=== PATIENT | male | born 1960 | race Caucasian/White ===

== ENCOUNTER 2018-05-02 13:53 | Inpatient (IN) ==
[2018-05-02] MEDS ORDERED: ASPIRIN PO ONE (14:01)
[2018-05-02] MEDS ORDERED: LASIX IV ONE (14:32)
--- NOTE | 2018-05-02 14:35 | Diag Imaging Result Doc PS360 ---
EXAM: CHEST-PORTABLE 05/02/2018 HISTORY: SOB/EDEMA TECHNIQUE: AP portable at 1427 COMMENT: There is cardiomegaly. There is ill-defined opacity in the right base some of which is probably produced by the cardiomegaly. There appears to be increased pulmonary vascularity and interstitial edema which was also present on 09/12/2017. IMPRESSION: Cardiomegaly and pulmonary edema. Electronically signed by Robin Barrientos 05/02/2018 2:32 PM
--- NOTE | 2018-05-02 14:45 | EKG Report ---
Test Performed on : 05/02/2018 2:03:45 PM Test Reason : SOB/EDEMA Blood Pressure : / mmHG Vent. Rate : 085 BPM Atrial Rate : 085 BPM P-R Int : 138 ms QRS Dur : 108 ms QT Int : 384 ms P-R-T Axes : 047 097 114 degrees QTc Int : 456 ms Normal sinus rhythm. Rightward axis Borderline ECG When compared with ECG of 12-SEP-2017 10:08, ST less depressed in Anterior leads T wave inversion no longer evident in Anterior leads Unconfirmed Result
[2018-05-02 15:18] LABS: BASO# 0.02 X1000 (0.0-0.2); BASO% 0.3 % (0.0-0.8); EOS# 0.27 X1000 (0.0-0.7); EOS% 3.8 % (0.0-10.0); HEMATOCRIT 29.7 % (42.0-52.0); HEMOGLOBIN 8.1 g/dL (14.0-18.0); IMM GRAN# 0.02 X1000 (0.0-0.04); IMM GRAN% 0.3 % (0.0-0.5); LYMPH# 1.03 X1000 (1.2-3.4); LYMPH% 14.6 % (20.5-51.1); MCHC 27.3 g/dL (33-37); MCV 88.1 FL (81-99); MONO# 0.66 X1000 (0.11-0.59); MONO% 9.3 % (1.7-9.3); MPV 10.9 FL (7.4-10.4); NEUT# 5.07 X1000 (1.4-6.5); NEUT% 71.7 % (42.2-75.2); PLT 276 X1000 (130-400); RBC 3.37 XMIL (4.7-6.1); RDW 17.6 % (11.5-14.5); WBC 7.07 X1000 (4.8-10.8)
[2018-05-02 15:25] LABS: INR 1.26; PROTIME 16.8 Seconds (11.0-16.0); PTT 27.4 Seconds (22.3-41.8)
[2018-05-02 15:33] LABS: URINE SOURCE CATH
[2018-05-02 15:48] LABS: BILIRUBIN URINE NEGATIVE (NEGATIVE); BLOOD URINE NEGATIVE (NEGATIVE); COLOR YELLOW; GLUCOSE URINE NEGATIVE (NEGATIVE); KETONE URINE NEGATIVE (NEGATIVE); LEUKOCYTES URINE SMALL (NEGATIVE); NITRITE URINE POSITIVE (NEGATIVE); PROTEIN URINE TRACE mg/dL (NEGATIVE); SP GRAVITY URINE 1.009; TURBIDITY URINE CLEAR (CLEAR); UROBILINOGEN URINE NORMAL (NORMAL)
[2018-05-02 15:50] LABS: UR EPITHELIAL CELLS <10 /HPF (<10); URINE BACTERIA 4+ /HPF; URINE RBC <10 /HPF (<10)
[2018-05-02 16:03] LABS: ALB/GLOB RATIO 1.3; ALBUMIN 3.3 g/dL (3.5-5.0); CALCIUM 8.8 mg/dL (8.8-10.2); CREATININE 2.4 mg/dL (0.7-1.2); POTASSIUM 6.6 mmol/L (3.5-5.1); TOTAL BILIRUBIN 0.18 mg/dL (0.20-1.00); TOTAL PROTEIN 5.9 g/dL (6.3-8.3)
[2018-05-02] MEDS ORDERED: ALBUTEROL 0.5% INH CONC FOR HYPERKALEMIA INH ONE (16:30)
[2018-05-02] MEDS ORDERED: ROCEPHIN 1 GM in NS 50 ML IV ONE (16:32)
[2018-05-02] MEDS ORDERED: CALCIUM GLUCONATE IV PUSH ONE (16:42)
[2018-05-02] MEDS ORDERED: D50W SYRINGE IV ONE (16:43)
[2018-05-02] MEDS ORDERED: SODIUM BICARBONATE 8.4% IV PUSH ONE (16:43)
[2018-05-02] MEDS ORDERED: HUMULIN R IV ONE (16:43)
[2018-05-02] MEDS ORDERED: KAYEXALATE PO ONE ×2 (16:44→21:16)
--- NOTE | 2018-05-02 17:11 | PROVIDER DOCUMENTATION ---
This chart was entered by Nury Medeiros Scribe, acting as scribe for Pablo Snowden MD. HPI-Respiratory General - General Chief Complaint: Edema Stated Complaint: DIARRHEA Time Seen by Provider: 05/02/18 14:26 Source: patient, family (daughter) Allergies/Adverse Reactions: Patient Allergies Allergy/AdvReac Type Severity Reaction Status Date / Time No Known Allergies Allergy Verified 09/12/17 09:59 Home Medications: Home Medication List Medication Instructions Recorded Confirmed Last Taken Type Amitriptyline HCl 100 mg PO QHS PRN #30 tab 08/29/17 09/12/17 Unknown Rx Aspirin [Aspirin EC] 81 mg PO DAILY #30 tablet.dr 08/29/17 09/12/17 Unknown Rx Gabapentin 600 mg PO TID #90 tab 08/29/17 09/12/17 Unknown Rx Pantoprazole [Protonix] 40 mg PO DAILY@0700 #30 tab 08/29/17 09/12/17 Unknown Rx Carvedilol [Coreg] 12.5 mg PO BID 09/12/17 09/12/17 Unknown History Furosemide [Lasix] 40 mg PO BID 09/12/17 09/12/17 Unknown History Hydrocodone/Acetaminophen [[place] 1 tab PO Q6H PRN PRN #20 tab 09/14/17 Unknown Rx 5-325 Tablet] - History of Present Illness-Resp Nature of Presenting Problem: Patient is a 57 year old male who presents to the ED with shortness of breath and weight gain. Patient's daughter states patient has gain 46 lbs in the last month. Patient's daughter states patient took a double dose of Lasix yesterday with no relief. Patient denies chest pain, fever, chills, nausea and vomiting. Patient states mild cough. Quality of Pain: reports: tightness Severity in ED: reports: mild Onset/Duration: reports: gradual Timing: reports: still present, getting worse Cough Quality/Degree: reports: moderate Episode Frequency: frequent episodes Current Respiratory Medication Therapy: Initiated see nurses note Associated Symptoms: reports: cough, shortness of breath, other (weight gain) Similar Symptoms Previously?: Yes Recently seen or treated by another doctor?: Yes Review of Systems - Adult - REVIEW OF SYSTEMS - ADULT Constitutional: reports: weight gain. denies: chills, fever Eyes: reports: no symptoms reported Ears, Nose, Mouth & Throat: reports: no symptoms reported Cardiovascular: reports: no symptoms reported. denies: chest pain, heart murmur , irregular heart rate Respiratory: reports: cough, shortness of breath. denies: wheezing Gastrointestinal: reports: no symptoms reported. denies: abdominal pain, diarrhea, nausea, vomiting Genitourinary: reports: no symptoms reported Musculoskeletal: reports: no symptoms reported Integumentary: reports: no symptoms reported Neurological: reports: no symptoms reported Psychiatric: reports: no symptoms reported Endocrine: reports: no symptoms reported Hematologic/Lymphatic: reports: no symptoms reported Allergic/Immunologic: reports: no symptoms reported All Other Systems: Reviewed and Negative Past History - Adult - PAST MEDICAL HISTORY-ADULT Review of Records: reports: Nursing Assessment Review, Medications Reviewed, Social history reviewed & non-contributory. Major Childhood Illnesses: reports: denies history Cardiovascular: reports: CHF, HTN, HI Respiratory: reports: COPD, sleep apnea Gastrointestinal: reports: denies history Obstetrical/Gynecological: reports: denies history Genitourinary: reports: dialysis (Tues,Thurs, Sat), ESRD, kidney disease Musculoskeletal: reports: other (Restless leg syndrome) Neurological: reports: denies history Endocrine/Immune: reports: Diabetes Other Conditions: reports: denies history - PRIOR SURGERIES/PROCEDURES Surgical/Procedure History: reports: CABG, cholecystectomy, orthopedic ( extremity) (right knee, right thumb sx), other (triple bypass) - IMMUNIZATION STATUS Childhood Immunizations: UTD Flu Vaccine: See Nurse Assessment - FAMILY HISTORY Family History: reviewed, not pertinent - SOCIAL HISTORY Smoking: cigarettes (former) Substance Use: denies Living Situation: family Physical Exam-General - PHYSICAL EXAM-ADULT Initial Vital Signs Reviewed: Yes - CONSTITUTIONAL General Appearance: alert, no apparent distress, obese - RESPIRATORY Respiratory: chest non-tender, rales (bilateral) - CARDIOVASCULAR Cardiovascular: regular rate, rhythm, gallop/S3 - GASTROINTESTINAL (ABDOMEN) Abdominal Exam: normal bowel sounds, non tender, soft, other (edema and cellulitis to panniculus. colostomy bag present to left lower abdomen.) - MUSCULOSKELETAL Extremity: non-tender, other (4 + pitting edema to bilateral lower extremities. stasis dermatitis to bilateral anterior lower extremities. weeping to right lower extremity.) - SKIN Integumentary: other (stasis dermatitis to bilateral anterior lower extremities. weeping to right lower extremity.) - NEUROLOGIC Neurologic: grossly normal - PSYCHIATRIC Psych/Mental Status: normal mood/affect, oriented x 3 Progress - PLAN OF CARE/RESULTS Progress/Plan/Lab Results: Vital Signs - 8 hr 05/02/18 14:00 05/02/18 14:20 05/02/18 14:30 Temperature 97.6 F Pulse Rate 87 84 84 Respiratory Rate 20 25 H 21 Blood Pressure 120/62 125/64 O2 Sat by Pulse Oximetry 96 88 L 89 L 05/02/18 14:32 05/02/18 14:40 05/02/18 14:50 Temperature Pulse Rate 84 83 83 Respiratory Rate 24 24 31 H Blood Pressure 117/61 O2 Sat by Pulse Oximetry 92 L 94 L 96 05/02/18 15:00 05/02/18 15:02 05/02/18 16:20 Temperature Pulse Rate 83 80 Respiratory Rate 20 19 Blood Pressure 100/56 O2 Sat by Pulse Oximetry 97 96 93 L Laboratory Results - last 24 hr 05/02/18 05/02/18 05/02/18 14:43 14:43 14:43 WBC 7.07 RBC 3.37 L Hgb 8.1 L Hct 29.7 L MCV 88.1 MCH 24.0 L MCHC 27.3 L RDW Std Deviation 17.6 H Plt Count 276 MPV 10.9 H Immature Gran % (Auto) 0.3 Neut % (Auto) 71.7 Lymph % (Auto) 14.6 L [place] % (Auto) 9.3 Eos % (Auto) 3.8 Baso % (Auto) 0.3 Immature Gran # (Auto) 0.02 Neut # (Auto) 5.07 Lymph # (Auto) 1.03 L [place] # (Auto) 0.66 H Eos # (Auto) 0.27 Baso # (Auto) 0.02 PT INR PTT (Actin FS) Sodium 139 Potassium 6.6 H* Chloride 110 H Carbon Dioxide 19 L Anion Gap 10 BUN 88 H Creatinine 2.4 H Estimated GFR/1.73 m2 28 BUN/Creatinine Ratio 37 Glucose 163 H Calculated Osmolality 308 Calcium 8.8 Total Bilirubin 0.18 L AST 11 ALT 10 Alkaline Phosphatase 93 Creatine Kinase 100 Troponin T Zhk-W-Qliythmbtmh Pept 6162 H Total Protein 5.9 L Albumin 3.3 L Globulin 2.6 Albumin/Globulin Ratio 1.3 Urine Source Urine Color Urine Turbidity Urine pH Ur Specific Cook Urine Protein Ur Glucose (Stick) Ur Ketones (Stick) Urine Blood Urine Nitrite Urine Bilirubin Urobilinogen Dipstick Urine Leukocytes Urine WBC (Auto) Urine RBC (Auto) U Epithel Cells (Auto) Urine Bacteria (Auto) 05/02/18 05/02/18 05/02/18 14:43 14:43 15:23 WBC RBC Hgb Hct MCV MCH MCHC RDW Std Deviation Plt Count MPV Immature Gran % (Auto) Neut % (Auto) Lymph % (Auto) [place] % (Auto) Eos % (Auto) Baso % (Auto) Immature Gran # (Auto) Neut # (Auto) Lymph # (Auto) [place] # (Auto) Eos # (Auto) Baso # (Auto) PT 16.8 H INR 1.26 PTT (Actin FS) 27.4 Sodium Potassium Chloride Carbon Dioxide Anion Gap BUN Creatinine Estimated GFR/1.73 m2 BUN/Creatinine Ratio Glucose Calculated Osmolality Calcium Total Bilirubin AST ALT Alkaline Phosphatase Creatine Kinase Troponin T 0.104 H Bda-Y-Bbumjcyklsw Pept Total Protein Albumin Globulin Albumin/Globulin Ratio Urine Source CATH Urine Color YELLOW Urine Turbidity CLEAR Urine pH 5.0 Ur Specific Cook 1.009 Urine Protein TRACE A Ur Glucose (Stick) NEGATIVE Ur Ketones (Stick) NEGATIVE Urine Blood NEGATIVE Urine Nitrite POSITIVE A Urine Bilirubin NEGATIVE Urobilinogen Dipstick NORMAL Urine Leukocytes SMALL A Urine WBC (Auto) 10-20 A Urine RBC (Auto) <10 U Epithel Cells (Auto) <10 Urine Bacteria (Auto) 4+ 05/02/18 16:14 WBC RBC Hgb Hct MCV MCH MCHC RDW Std Deviation Plt Count MPV Immature Gran % (Auto) Neut % (Auto) Lymph % (Auto) [place] % (Auto) Eos % (Auto) Baso % (Auto) Immature Gran # (Auto) Neut # (Auto) Lymph # (Auto) [place] # (Auto) Eos # (Auto) Baso # (Auto) PT INR PTT (Actin FS) Sodium Potassium 6.5 H* Chloride Carbon Dioxide Anion Gap BUN Creatinine Estimated GFR/1.73 m2 BUN/Creatinine Ratio Glucose Calculated Osmolality Calcium Total Bilirubin AST ALT Alkaline Phosphatase Creatine Kinase Troponin T Exc-J-Qckaurleirr Pept Total Protein Albumin Globulin Albumin/Globulin Ratio Urine Source Urine Color Urine Turbidity Urine pH Ur Specific Cook Urine Protein Ur Glucose (Stick) Ur Ketones (Stick) Urine Blood Urine Nitrite Urine Bilirubin Urobilinogen Dipstick Urine Leukocytes Urine WBC (Auto) Urine RBC (Auto) U Epithel Cells (Auto) Urine Bacteria (Auto) Orders Category Date Time Status Cardiac Monitoring DIRECTED Care 05/02/18 14:01 Active Atkins Cath Insertion ORDERED Care 05/02/18 15:04 Active Nursing- MD Consult Request ROUTINE Care 05/02/18 16:29 Active Oxygen Therapy- ED Nursing DIRECTED Care 05/02/18 14:01 Active Saline Loc NOW Care 05/02/18 14:01 Active Update & Confirm Home Medicati ROUTINE Care 05/02/18 16:28 Active MD [Physician/Provider Consults] Routine Cons 05/02/18 16:28 Ordered CHEST-PORTABLE [RAD] Stat Exams 05/02/18 14:02 Completed CBC WITH ELECTRONIC DIFF [HEME] Stat Lab 05/02/18 14:43 Completed CK PROFILE [SP CHEM] Stat Lab 05/02/18 14:43 Completed COMPREHENSIVE METABOLIC PANEL [CHEM] Stat Lab 05/02/18 14:43 Completed POTASSIUM [CHEM] Stat Lab 05/02/18 16:14 Completed PRO B-NATRIURETIC PEPTIDE Stat Lab 05/02/18 14:43 Completed PROTIME WITH INR [COAG] Stat Lab 05/02/18 14:43 Completed PTT [COAG] Stat Lab 05/02/18 14:43 Completed TROPONIN T Stat Lab 05/02/18 14:43 Completed URINALYSIS W/POSS RFLX CULT [URINALYSIS] Stat Lab 05/02/18 15:23 Completed URINE CULTURE [RM] Routine Lab 05/02/18 15:54 Received Albuterol 0.5% INH Conc [Albuterol 0.5% INH Conc For Med 05/02/18 16:30 Discontinued Hyperkalemia] 25 mg INH NOW ONE Aspirin Med 05/02/18 14:01 Discontinued 325 mg PO NOW ONE Calcium Gluconate Med 05/02/18 16:42 Discontinued 1 gm IV PUSH NOW ONE CefTRIAXONE [Rocephin] 1 gm Med 05/02/18 16:32 Discontinued 0.9% Sodium Chloride Inj [Ns] 50 ml IV NOW Dextrose 50% Syringe [D50w Syringe] Med 05/02/18 16:43 Discontinued 50 ml IV NOW ONE Furosemide [Lasix] Med 05/02/18 14:32 Discontinued 60 mg IV NOW ONE Insulin Human Regular [Humulin R] Med 05/02/18 16:43 Discontinued 10 unit IV NOW ONE Sodium Bicarbonate 8.4% Med 05/02/18 16:43 Discontinued 50 meq IV PUSH NOW ONE Sodium Polystyrene [Kayexalate] Med 05/02/18 16:44 Discontinued 15 gm PO NOW ONE Aerosol Treatments Routine Oth 05/02/18 16:31 Completed Aerosol Treatments Stat Oth 05/02/18 16:31 Completed CP/SOB/Palp >45 yrs of Age Stat Oth 05/02/18 14:01 Ordered EKG [EKG] Stat Ther 05/02/18 14:01 Draft Result Diagrams: 05/02/18 14:43 05/02/18 16:14 - REASSESSMENT Reassessment #1 Time Reassessed: 17:06 Status: unchanged (lasix 60mg given, rocephin given, 2nd K+ = 6.5. Bump in troponin w/o ST elevation.) - EKG 1 Time of EKG reading by physician:: 14:03 EKG Read and Signed by:: Pablo Snowden EKG Interpretation (*Must complete 3 of following elements*): Abnormal Rate: 85 Rhythm: normal sinus rhythm [place]: right QRS: normal [place] Interval: normal Comments: borderline ECG - XRAY 1 XRAY Study: Chest Impression: See EMR Report ( EXAM: CHEST-PORTABLE 05/02/2018 HISTORY: SOB/ EDEMA TECHNIQUE: AP portable at 1427 COMMENT: There is cardiomegaly. There is ill-defined opacity in the right base some of which is probably produced by the cardiomegaly. There appears to be increased pulmonary vascularity and interstitial edema which was also present on 09/12/2017. IMPRESSION: Cardiomegaly and pulmonary edema. Electronically signed by Robin Barrientos 2:32 PM 05/02/18 1432 Interpreting Physician: Robin Barrientos MD Dictated Date/Time: 05/02/18 1431 cc: Pablo Snowden MD; Fariba Heard MD) - CONSULTS/PCP/HOSPITALIST Notification #1 *Consult/PCP/Hospitalist*: GIRMA Perales for Hospitalist Time Discussed: 16:29 (Dr. Boyd accepted admit) Reason/Comments: Dr. Snowden consulted with MERRITT Perales about patient. Consult Disposition: Admit Departure - Departure Date of Disposition Decision: 05/02/18 Time of Disposition Decision: 16:29 DIAGNOSIS: Pulmonary edema, Chronic kidney disease, CHF (congestive heart failure), UTI ( urinary tract infection), Hyperkalemia Disposition: ADMITTED INPATIENT 09 Certified Medical Emergency: Emergent Condition: Stable Referrals and Follow-Ups: Fariba Heard MD [Primary Care Provider] - - Critical Care Note This patient required my direct & personal management of CC.: No Attestation - Physician/ ADEOLA Attestation The physician spent face to face time with patient:: Yes Advanced Practice Provider documentation review:: Supervising physician onsite and consulted in the evaluation and care of this patient. The physician did have a face to face encounter with the patient. This chart was documented by the indicated scribe, (Nury Medeiros Scribe) and accurately reflects the services I performed and decisions made by me, Pablo Snowden MD, as attested by the provider's signature.
[2018-05-02] MEDS ORDERED: TYLENOL PO PRN (17:37)
[2018-05-02] MEDS ORDERED: ZOFRAN IV PRN (17:37)
[2018-05-02] MEDS: HEPARIN SUBQ SCH (17:37)
--- NOTE | 2018-05-02 20:17 | HISTORY AND PHYSICAL ---
PRIMARY CARE PROVIDER: Dr. Heard. CARPENTER STREETCAR: Dr. Magnus Villaseñor. CHIEF COMPLAINT: A 46 pounds weight gain in 1 to 3 months. HISTORY OF PRESENT ILLNESS: Mr. Oshea is a 56-year-old gentleman who is known to Dr. Villaseñor' service for outpatient for his chronic kidney disease stage 4 to 5. His family members are in the room. He has been in and out of [facility] and [facility] for this past year as well as in and out of rehab. He has a stage IV decubitus that he had surgery for at [facility] with a diverting colostomy. He is currently bed bound at home with [facility]. The patient wants to be a full code and receive all treatments and be discharged back home with hospice. Other past medical history: Diabetes mellitus type 2, end-stage COPD for which he is on hospice for, hyperlipidemia, coronary artery disease, morbid obesity, chronic pain, sleep apnea, anemia of chronic disease and chronic edema. The patient went to see Dr. Villaseñor today. He does have bilateral lower extremity pitting edema all the way up to his abdomen. He has weeping to his bilateral lower extremities. Workup in the ED revealed a potassium of 6.6, a BUN of 88 and a creatinine of 2.4. ProBNP of 61 and 62, and a troponin of 0.104, as well as a positive urinalysis. He was given IV Lasix. We will treat his hyperkalemia per protocol. He was given IV Rocephin. We will admit him and consult Dr. Villaseñor for assistance with medications and his chronic kidney disease. He denies any headache, fever, chills, productive cough. However, he does complain of a dry cough. At no dysuria. No chest pain. He does have shortness of breath; however, he states it is no more than his usual. PAST MEDICAL HISTORY: 1. Chronic kidney disease stage 4, 5. 2. Diabetes mellitus type 2. 3. Hypertension. 4. Hyperlipidemia. 5. Coronary artery disease. 6. Morbid obesity. 7. Chronic pain. 8. Sleep apnea. The patient is supposed to use CPAP machine at night. 9. Anemia of chronic disease. 10. Chronic edema. 11. COPD, end-stage per family for which he is on hospice. SURGICAL HISTORY: 1. CABG. 2. Cholecystectomy. 3. Knee surgery. 4. Hernia repair. 5. Vascular surgery in lower extremities. 6. Sacral decubitus ulcer performed at [facility]. 7. Diverting colostomy secondary to decubitus on sacrum. SOCIAL HISTORY: He lives with his . He is on hospice with [facility]. No tobacco, alcohol or illicit drug use. FAMILY HISTORY: Noted for kidney disease as well as heart disease. CURRENT ALLERGIES: No known drug allergies HOME MEDICATIONS: Have not been reconciled. Order has been placed, dated, confirmed. REVIEW OF SYSTEMS: A 14 point review of systems completely negative except for those mentioned in HPI. PHYSICAL EXAMINATION: VITAL SIGNS: Temperature is 97.6 degrees, heart rate 79, respirations 18, blood pressure 110/70, O2 is 95% on 3 L nasal cannula. GENERAL: Mr. Oshea is a 57-year-old, fidgety, male who is lying on his left side in the stretcher. He is demanding the door be left open, the curtain pulled back and to sit on the edge of the bed unassisted. HEENT: Atraumatic, normocephalic. [place]. NECK: Supple. CARDIOVASCULAR: S1, S2 appreciated. No murmurs, gallops or rubs noted. Could not appreciate pedal pulses secondary to bilateral lower extremity pitting edema with weeping to his bilateral lower extremities. His pitting edema extends up to his abdomen area. JVD could not be is assessed secondary to patient's morbid obesity. GENITOURINARY: Atkins draining clear urine. PULMONARY: Scattered rhonchi and rales throughout all lung mills. No wheezing. Bilaterally decreased in the bases. GASTROINTESTINAL: Morbidly obese. He does have body wall edema. No tenderness to palpation. Hypoactive bowel sounds 4 quadrants. NEUROLOGIC: Patient is alert and oriented x 4. Follows commands. Moves all extremities. No focal deficits noted. DIAGNOSTIC DATA: EKG normal sinus rhythm at 85 beats per minute. QTc of 456. Chest x-ray: Cardiomegaly with pulmonary edema. LABORATORY DATA: White count 7, hemoglobin and hematocrit 8 and 29, platelet count is 276,000. Chemistry: Sodium 139, potassium 6.6, recheck 6.5 after 60 of Lasix. BUN 88, creatinine 2.4, blood glucose is 163, total bilirubin 0.18. Troponin 0.104. ProBNP 61, 62. ASSESSMENT AND PLAN: 1. Fluid volume overload secondary to acute on chronic kidney disease/CHF/ Pulmonary hypertension. The patient has received IV Lasix. We will continue with IV Lasix q.12, consult Dr. Villaseñor. Strict I's and O's, daily weights. Routine labs. 2. Hyperkalemia, at 6.6 after IV Lasix. He went down to 6.5. Will continue with hypokalemic treatment, 1 amp of calcium gluconate, D50, 10 units of IV, regular insulin, 1 amp of sodium bicarbonate and Kayexalate. Will recheck in 1 hour after medications have been administered. 3. Per report, stage IV decubitus. The patient had debrided at [facility] with a diverting colostomy. We will consult Wound Care. 4. Probable UTI. We will continue with Rocephin, await urine culture. 5. Chronic anemia, stable. 6. History of congestive heart failure. Patient does have an elevated proBNP. We will continue with diuresis. Recheck an echocardiogram. 7. Coronary artery disease. No chest pain. 8. Chronic pain syndrome. We will continue with [place]. 9. Diabetes mellitus type 2. We will check a hemoglobin A1c. Continue with pattern blood sugars and sliding scale. 10. Hypertension. 11. Update and confirm home medications. 12. End-stage COPD. Patient is on hospice with [facility]. He requested to return home with hospice. 13. Code status. Full code. 14. Further recommendations to follow physician evaluation, laboratory data and diagnostic data. Dictated by GIRMA Nayak for Thomas Boyd MD Patient seen and examined by me. Patient presenting with weight gain. He has CKD and noted to have a k+ level of 6.6. He has a diverting colostomy secondary to decubitus in the sacrum. Vitals stable. Nephrology consulted I agree with the assessment and plan as outlined by the GIRMA. Dr. Boyd. cc: Thomas Boyd MD [facility]
[2018-05-02] MEDS: HUMALOG SUBQ SCH (21:00)
[2018-05-03] MEDS: LASIX IV SCH ×2 (04:00→17:56)
[2018-05-03] MEDS ORDERED: D50W SYRINGE IV ONE (04:09)
[2018-05-03] MEDS ORDERED: ALBUTEROL 0.5% INH CONC FOR HYPERKALEMIA INH ONE (04:09)
[2018-05-03] MEDS ORDERED: CALCIUM GLUCONATE 1 GM in NS 50 ML IV ONE (04:09)
[2018-05-03] MEDS ORDERED: HUMULIN R IV ONE (04:09)
[2018-05-03] MEDS: HUMALOG SUBQ SCH ×4 (06:01→21:33)
[2018-05-03] MEDS: PRILOSEC PO SCH (06:13)
[2018-05-03 07:05] LABS: BASO# 0.02 X1000 (0.0-0.2); BASO% 0.3 % (0.0-0.8); EOS# 0.24 X1000 (0.0-0.7); EOS% 3.4 % (0.0-10.0); HEMATOCRIT 28.6 % (42.0-52.0); HEMOGLOBIN 7.7 g/dL (14.0-18.0); IMM GRAN# 0.02 X1000 (0.0-0.04); IMM GRAN% 0.3 % (0.0-0.5); LYMPH% 18.6 % (20.5-51.1); MCH 23.5 PG (27-31); MCHC 26.9 g/dL (33-37); MCV 87.5 FL (81-99); MONO# 0.57 X1000 (0.11-0.59); MONO% 8.2 % (1.7-9.3); MPV 10.7 FL (7.4-10.4); NEUT# 4.84 X1000 (1.4-6.5); NEUT% 69.2 % (42.2-75.2); PLT 283 X1000 (130-400); RBC 3.27 XMIL (4.7-6.1); RDW 17.8 % (11.5-14.5); WBC 6.99 X1000 (4.8-10.8)
--- NOTE | 2018-05-03 07:48 | EKG Report ---
Test Performed on : 05/03/2018 07:40:24 AM Test Reason : fu hyperkalemia Blood Pressure : / mmHG Vent. Rate : 097 BPM Atrial Rate : 097 BPM P-R Int : 144 ms QRS Dur : 094 ms QT Int : 346 ms P-R-T Axes : 050 082 068 degrees QTc Int : 439 ms Normal sinus rhythm. T wave abnormality, consider inferior ischemia Abnormal ECG When compared with ECG of 02-MAY-2018 14:03, (Unconfirmed) No significant change was found Confirmed by Caroline BEASLEY, Rainer Jones ([id number]) on 05/03/2018 4:58:54 PM
[2018-05-03 07:49] LABS: CALCIUM 8.8 mg/dL (8.8-10.2); CREATININE 2.3 mg/dL (0.7-1.2); MAGNESIUM 1.9 mg/dL (1.5-2.7); POTASSIUM 5.7 mmol/L (3.5-5.1)
[2018-05-03] MEDS ORDERED: KAYEXALATE PO ONE (10:25)
--- NOTE | 2018-05-03 11:06 | Diag Imaging Result Doc PS360 ---
US RENAL 2 (RETROPER) COMPLETE - 05/03/2018 INDICATION: decreased renal function TECHNIQUE: COMPARISON: 09/12/2017 FINDINGS: The kidneys and urinary bladder are normal and unchanged from prior. There is a Atkins catheter in the urinary bladder. The right kidney measures 13.5 x 6.3 x 6 cm. The left kidney measures 13.6 x 5.2 x 6.8 cm. IMPRESSION: Negative exam. Electronically signed by Zi Schwartz 05/03/2018 11:03 AM
[2018-05-03] MEDS: NORCO-7.5 PO PRN ×2 (12:24→15:58)
[2018-05-03] MEDS: HEPARIN SUBQ SCH ×2 (12:26→20:12)
[2018-05-03 14:13] LABS: UR PROT RANDOM 20.3 mg/dL
[2018-05-03] MEDS ORDERED: VANCOMYCIN IV PER PHARMACY MISC SCH (15:15)
--- NOTE | 2018-05-03 15:49 | PROGRESS NOTE ---
DATE: 05/03/2018 INTERVAL HISTORY: Patient with continued swelling and some right lower leg pain , otherwise asymptomatic. No acute events overnight. No new complaints. REVIEW OF SYSTEMS: A 12 point review of systems negative except as per interval history. LABS: WBC 6.9, hemoglobin 7.7, hematocrit 28.6, platelets 283,000. Sodium 143 , potassium 5.7, bicarb 19, BUN 87, creatinine 2.3, glucose 113 to 189. Troponin 0.10 and essentially flat on last two checks. VITAL SIGNS: T-max 98.6 degrees, pulse 93, respirations 16, blood pressure 115/ 54, O2 saturation 94% on 4 L by nasal cannula. PHYSICAL EXAMINATION: General: No acute distress. Vital signs: As above. HEENT: Normocephalic, atraumatic. Moist mucous membranes. No cervical adenopathy. Cardiovascular: Regular rate and rhythm. No murmurs, rubs, or gallops. Pulmonary: Clear to auscultation bilaterally within the limits of body habitus. Abdomen: Soft superiorly but some anasarca noted just below the belly button. Bowel sounds positive. Nontender. Obese. Extremities: Peripheral pulses decreased but intact. Significant lower extremity bilateral venous stasis changes and swelling. Left anterior lower extremity with some increased erythema and blistering with some slight purulent drainage noted. Neurologic: Cranial nerves grossly intact. No focal deficits identified. Psychiatric: Normal mood and affect. Awake, alert, and oriented x3. Skin: Very deep decubitus ulcer noted on the sacrum with clean edges and no purulent drainage. ASSESSMENT AND PLAN: 1. Volume overload secondary to kidney disease. Patient is CKD 4 at baseline. Baseline appears to be 1.6 to 2. So likely with a little bit of [place]. Nephrology recommendations pending. On diuresis which we will continue, attempting to improve his swelling. 2. Hyperkalemia, 6.6 initially and improved to 5.7 today. We will give further Kayexalate and monitor. Discussed dietary restrictions with patient who states he was drinking large amounts of orange juice at home on a regular basis. Suspect dietary noncompliance is why the patient has had hyperkalemia on almost every admission. The patient on renal diet and educated on the importance of avoidance of excess dietary potassium. 3. Stage 4 decubitus ulcer. Very large but no signs of infection at this time. 4. Bilateral lower extremity chronic venous stasis and right lower extremity cellulitis. The patient was already started on Rocephin on admission. Will add vancomycin and ask ID to see. 5. Likely chronic diastolic congestive heart failure and pulmonary hypertension. Lower extremity swelling but no signs of pulmonary edema currently. On diuretics as above. Repeat echo pending. EF has been normal on the last several echocardiograms. 6. Diabetes mellitus. A1c pending. Glucose control acceptable. Continue current regimen. 7. Chronic obstructive pulmonary disease. Patient on hospice prior to admission for COPD. Plans on return to hospice on discharge. 8. Hypertension. Good control on current monitor. Continue to monitor. 9. Chronic pain. Continue home [place]. 10. Anemia of chronic disease, stable. 11. Possible urinary tract infection. Urine culture with gram-negative cristiana with speciation pending. On Rocephin as above. We will monitor. 12. Obstructive sleep apnea. Patient has to have his home CPAP machine brought from home. 13. Deep vein thrombosis prophylaxis. Heparin. [facility]
--- NOTE | 2018-05-03 16:08 | NEPHROLOGY CONSULTATION ---
DATE: 05/03/2018 TIME SEEN: REASON FOR ADMISSION: Increased work of breathing with fluid volume overload. REASON FOR CONSULT: Acute kidney injury on chronic kidney disease stage 4 with fluid volume overload. CONSULTING PHYSICIAN: Thomas Boyd MD, per Oksana Sanders. HISTORY OF PRESENT ILLNESS: Mr. Oshea is a 56-year-old white male who presented to our office yesterday for work-in for increased swelling, increased work of breathing and weight gain. In our office it was noted that he was 46 pounds above his last weight in our office in the last 6 months. We were unable to treat his increased lower extremity swelling. He remained on Lasix 40 mg b.i.d. at home with metolazone and this has not continued to work. He states that he has been on a low-salt diet. Due to his increased work of breathing and severe weakness, we have referred him to the emergency room and the hospitalist was notified. The patient was subsequently admitted after going through the emergency room and found to have a potassium of 6.6, BUN of 88, and a creatinine of 2.4 in the ER. His BNP was slightly elevated. He was treated with Lasix 60 mg IV push. He was given an antibiotic of Rocephin and was admitted to the floor for further evaluation and workup. The patient was recently seen by our office at [facility] in February 2018 for hyperkalemia and acute kidney injury. The patient had avoided dialysis subsequently to responding to IV fluid resuscitation and sodium bicarbonate and medically treated for his hyperkalemia. In the last 6 months he has been treated by Surgery for a diverting colostomy due to a decubitus. He has home health coming to his home on a weekly basis. He currently denies any chest pain. States his breathing has improved. He continues to have 3 to 4+ lower extremity swelling. These are tight with bilateral blisters to his lower extremities. He has chronic venous stasis present. He denies any nausea or vomiting. No recent diarrhea. No fever or chills. Subsequently, he is currently on the floor for further evaluation and monitoring. PAST MEDICAL HISTORY: 1. Chronic kidney disease stage 4. Baseline creatinine after his last hospitalization was down to 1.1 with a baseline noted in the low 2s. 2. Diabetes mellitus type 2, uncontrolled. 3. Hypertension, hyperlipidemia, coronary artery disease, morbid obesity, congestive heart failure, coronary artery disease if not mentioned, chronic pain, sleep apnea, supposed to be using a CPAP machine at night, anemia of chronic disease, osteodystrophy of chronic disease, COPD. SURGICAL HISTORY: He has had a CABG, cholecystectomy, knee surgery, hernia repair, vascular surgery on lower extremities, sacral decubitus ulcer performed at [facility], diverting colostomy secondary to decubitus on sacrum. SOCIAL HISTORY: He lives with his . [facility] and assist with his care. No tobacco, alcohol or illicit drug use noted. Former smoker. FAMILY HISTORY: Noted for kidney disease and heart disease. CURRENT ALLERGIES: No known drug allergies. HOME MEDICATIONS: Have yet to be reconciled. REVIEW OF SYSTEMS: Review of systems x10 with pertinent positives listed above in the HPI. VITAL SIGNS: Temperature 97.8 degrees, blood pressure 127/65, heart rate 88, respirations 18. He is on 3 L nasal cannula. Last recorded saturation 98%. He has had 50 mL in and he has had 2400 out with Atkins catheter in place. Colostomy bag remains in place. LABORATORY DATA: Sodium 143, potassium 5.7, chloride 111, CO2 19, BUN 87, creatinine 2.3, glucose 104, anion gap of 13, calcium 8.8, phosphorus 6, albumin 3, white count 6.99, hemoglobin 7.7, hematocrit 28.6, platelet count 283,000. The patient has a pro-time of 16.8 with an INR of 1.26, PTT 27.4. He has positive troponins. Urinalysis is positive for protein, leukocytes. It is noted that he is growing gram-negative rods. Sensitivity is still pending. We have ordered a renal ultrasound indicating his right kidney measuring 13.5, left measuring 13.6. Urine electrolytes are still pending. PHYSICAL EXAMINATION: General: This is a 57-year-old white male who appears older than his stated age. He is nervous, though he states that he is resting better. He appears chronically ill, though in no acute distress at this time. HEENT: Normocephalic, atraumatic. Conjunctiva is pale. He has [place]. Mucous membranes are dry. Neck: Supple. Unable to determine JVD, secondary to body habitus. Cardiovascular: Regular rate and rhythm. S1, S2 noted. Unable to determine any further heart sounds secondary to body habitus. He has appreciable tight lower extremity pitting edema, weeping, with bilateral blisters. This edema appears all the way up into his hip, pelvis, and abdominal region. Chest: Lungs are clear anteriorly, diminished posterior, more than likely secondary to body habitus. He is currently on O2. Abdomen: Distended. Colostomy is in place. Genitourinary: Not inspected. Atkins catheter is in place. Neurological: He is alert to person and to place and most recent events. Integumentary: His posterior was not inspected. I did not inspect his sacral area. He continues with colostomy to the anterior, as noted venous stasis with blisters to the bilateral lower extremities. Continues with chronic venous stasis. ASSESSMENT AND PLAN: 1. Acute kidney injury on chronic kidney disease stage 4. Patient's creatinine is at 2.3 today down from 2.4. He has had adequate urine out to Atkins catheter. His renal ultrasound appears stable. We are awaiting his urine electrolytes. 2. Fluid volume overload secondary to acute kidney injury. The patient had received IV Lasix yesterday. He is now on Lasix 50 mg IV q.12 hours. He is on strict I Os with daily weights. 3. Electrolytes. Patient continues hyperkalemic. This has responded to Kayexalate and sodium bicarbonate with insulin and D50 in and albuterol. His potassium this morning is 5.7. No indications for intervention. He remains on Lasix. 4. Acid-base balance. Patient has metabolic acidosis more likely related to #1. We will continue to monitor. 5. Anemia. Hemoglobin of 7.7. This is stable. 6. Stage IV decubitus with a diverting colostomy. Followed by wound care. 7. End-stage chronic obstructive pulmonary disease. The patient is in hospice with [facility], according to the family in the notes. Patient does remain a full code. I would like to thank you for allowing us to follow with this patient. Dictated by GIRMA Prasad for Magnus Villaseñor MD cc: GIRMA Prasad MD
[2018-05-03] MEDS: MAXIPIME 1 GM in NS 50 ML IV SCH (17:56)
[2018-05-03] MEDS ORDERED: ROCEPHIN 1 GM in NS 50 ML IV SCH (18:00)
[2018-05-03] MEDS: ZYVOX PO SCH (18:50)
--- NOTE | 2018-05-03 20:44 | INFECTIOUS DISEASE CONSULT REP ---
DATE: 05/03/2018 CONCLUSION: The patient has a severe right leg cellulitis, and he also has a lesser cellulitis involving the left leg. He also has a deep buttock decubitus ulcer. It does not, however, extend to bone. The ulcer appears to be infected. Also, a urinary tract infection. RECOMMENDATIONS: I have switched the patient from vancomycin and Rocephin to Zyvox and cefepime. I have gotten a culture from the patient's right leg, and also from the buttock decubitus ulcer. DISCUSSION: The patient developed progressive cellulitis of his legs. The right leg has been more involved than the left leg. He also has a deep buttock decubitus ulcer. He originally was seen at [facility], and there had surgery on his decubitus ulcer, and he also had a diverting colostomy. His studies thus far show a CBC with a white count of 6990, hemoglobin 7.7, and platelet count 283,000. Creatinine is 2.3. GFR is 29. Liver function studies are normal. Urinalysis showed white cells and bacteria, and the urine culture is growing a Gram negative cristiana. The patient's chest x-ray shows cardiomegaly and pulmonary edema. A renal ultrasound is normal. PAST MEDICAL HISTORY/REVIEW OF SYSTEMS: Eyes and Ears: He is hearing, and vision is okay. Neck: No stiffness. Respiratory: No cough. He does have some dyspnea on exertion, but this most likely is due to his congestive heart failure. Cardiac: The patient has congestive heart failure, with pulmonary edema. GI: The patient had gained 46 pounds in the last 1 to 3 months. Bones, Joints, Muscles: The patient has cellulitis of the legs. He does not have a swollen joint, and he does not complain of muscle aches. Genitourinary: No dysuria or flank pain. Endocrine: The patient has diabetes mellitus, and he does have hypothyroidism. Neurologic: The patient does not have seizures. He has not recently lost any motor or sensory function. PREVIOUS HOSPITALIZATIONS AND OPERATIONS: The patient has had coronary artery bypass grafting, cholecystectomy, knee surgery, hernia repair, vascular surgery in the lower extremities, sacral decubitus ulcer surgery, and diverting colostomy, second to the buttock decubitus ulcer. INFECTIOUS DISEASE HISTORY: Positive for pneumonia and urinary tract infection. FAMILY HISTORY: Positive for diabetes mellitus, hypertension, myocardial infarction, and stroke. SOCIAL HISTORY: The patient lives with his . He had been on hospice care. He does not smoke cigarettes, drink alcoholic beverages, or use illicit drugs. HOME MEDICATIONS: Amlodipine, aspirin, atenolol, Lipitor, Dexilant, Lasix, insulin, Synthroid, and Flomax. PHYSICAL EXAMINATION: Vital Signs: Temperature is 98.6 degrees, pulse 93, respirations 16, blood pressure 115/54. The patient is 5 feet 11 inches tall, weighs 324 pounds. General: This is a morbidly obese, middle-aged male. He does not appear to be in any acute distress at this time. Head, Eyes, Ears, Nose, and Throat: He can hear my spoken words and see near objects. He does not have any white patches on his tongue. Neck: No meningismus. Thorax: Increased AP diameter of the chest. Lungs: There were bibasilar rales. Cardiovascular: Regular heart rate. Abdomen: Soft and nontender. Pelvic: The patient on the left buttock area has a deep decubitus ulcer. It does not extend to bone. There is some serous purulent drainage. There is no odor to the wound. Extremities: The right leg is very erythematous and has pustular lesions on it. The left leg is less erythematous, and it is completely dry. The right leg cellulitis is red color, and it has drainage of serous fluid and some pustules present as well. Neurologic: The patient is awake. He can move his extremities. There is no tremor. His sensation was intact to touch. His memory as regarding his medical history was decreased. Thank you for the consult. cc: Hardeep Stewart MD
[2018-05-04] MEDS: LASIX IV SCH ×2 (05:21→17:37)
[2018-05-04] MEDS: ZYVOX PO SCH ×2 (05:21→17:36)
[2018-05-04] MEDS: MAXIPIME 1 GM in NS 50 ML IV SCH ×2 (05:21→17:37)
[2018-05-04] MEDS: HUMALOG SUBQ SCH ×4 (06:02→21:50)
[2018-05-04] MEDS: PRILOSEC PO SCH (06:02)
[2018-05-04 07:56] LABS: ALBUMIN 3.2 g/dL (3.5-5.0); CALCIUM 8.5 mg/dL (8.8-10.2); CREATININE 2.1 mg/dL (0.7-1.2); PHOSPHORUS 5.4 mg/dL (2.7-4.5); POTASSIUM 4.9 mmol/L (3.5-5.1)
[2018-05-04] MEDS: SODIUM BICARBONATE PO SCH (10:32)
[2018-05-04] MEDS: ASPIRIN EC PO SCH (10:32)
[2018-05-04] MEDS: SYNTHROID PO SCH (10:32)
[2018-05-04] MEDS: LIPITOR PO SCH (10:32)
[2018-05-04] MEDS: FLOMAX PO SCH (10:32)
[2018-05-04] MEDS: HEPARIN SUBQ SCH ×2 (10:32→21:50)
--- NOTE | 2018-05-04 14:54 | PROGRESS NOTE ---
DATE: 05/04/2018 SUBJECTIVE: The patient is awake. Not in any distress. Has family present in the room. OBJECTIVE: Vital signs: Vital signs are as follows: Temperature 98 degrees, pulse is 101 respirations 18, blood pressure 139/76, oxygen saturation is 96%. HEENT: He is atraumatic, normocephalic. Cardiovascular system: S1, S2. Respiratory system: Has evidence of good air entry bilaterally. Abdomen: Obese. Does have colostomy bag noted. Extremities: Has 1 site in both lower extremities that seemed to be worse on the right than on the left. Central nervous system: No obvious focal deficits noted. LABS: Sodium is 142, potassium 4.9, chloride is 109, bicarbonate is 20. BUN is 82, creatinine is 2.1. Glucose is 178. Urine culture positive for gram-negative rods. Culture from the left leg also positive for gram-negative rods. ASSESSMENT AND PLAN: 1. Volume overload secondary to chronic kidney disease. We will continue diuretics. Monitor intakes and outputs, as well as daily weights. Nephrology following. 2. Hypokalemia. Today's potassium level has come down nicely to about 4.9. We will continue to keep track of potassium level. 3. Bilateral lower extremity chronic venous stasis, as well as lower extremity cellulitis. Continue antibiotics as recommended by Infectious Disease and also local wound care. 4. Sacral decubitus ulcer. Continue local wound care. 5. Diabetes mellitus. Continue blood sugar monitor, as well as sliding scale insulin. 6. Chronic obstructive pulmonary disease. Maintain patient on nebulized bronchodilators as needed. 7. Hypertension. Blood pressure seemed to be controlled, and will maintain patient on antihypertensive medications. 8. Anemia of chronic disease. Continue to follow up on hemoglobin and hematocrit. Transfuse packed red blood cells as needed. 9. Probable urinary tract infection. Continue antibiotics as recommended by Infectious Disease. 10. Obstructive sleep apnea. The patient to use CPAP machine from home. 11. Deep vein thrombosis prophylaxis. Heparin. cc: Thomas oByd MD
--- NOTE | 2018-05-04 15:46 | ECHO REPORT ---
ORDER DATE: 05/03/2018 MEASUREMENTS: Left ventricular end-diastolic diameter 4.7, aortic root 2.8. SUMMARY: 1. Very difficult study for interpretation due to very limited acoustic window quality. 2. Very mild sclerosis of aortic valve demonstrated. Aortic valve appears to demonstrate adequate opening. Peak gradient across aortic valve is less than 10 mmHg. There is mild thickening of mitral valve leaflets with adequate mitral valve opening. There is trace mitral regurgitation. Tricuspid valve without evidence of structural abnormality while pulmonic valve is not demonstrated. There is mild to moderate tricuspid regurgitation. The estimated systolic PA pressure by Doppler is 55 mmHg suggesting moderate pulmonary hypertension. The aortic root is normal in size. 3. Normal left ventricular chamber size with mild concentric left hypertrophy is suggested on 2- dimensional images. Estimated left ejection fraction appears to be at least 50%. No obvious wall motion abnormality can be appreciated. Biatrial enlargement is demonstrated. The apical views are foreshortened and somewhat exaggerates right ventricular chamber size. Nevertheless right ventricle appears to be enlarged. 4. No pericardial effusion. 5. Inferior vena cava not seen. cc: Rodolfo Renee MD
[2018-05-04] MEDS: NORCO-7.5 PO PRN (17:36)
--- NOTE | 2018-05-05 01:13 | NEPHROLOGY PROGRESS NOTE ---
DATE: 05/04/2018 SUBJECTIVE: He is doing much better today. Lying on his right side. No shortness of breath, nausea, vomiting. He states he has been out of bed. OBJECTIVE: Blood pressure 139/76, heart rate 101, respiration 18, afebrile. Intake 500 mL. Output 4.4 L. No acute distress.Skin: Warm and dry. Conjunctivae are pink. Neck: Neck veins are not visible. Heart: Regular and distant. Lungs: Equal, distant. No crackles. Abdomen: Soft, distended, nontender. Bowel sounds present. Extremities: 1+ edema. No clubbing or cyanosis. IMPRESSION: Acute kidney injury. Prerenal. Improving with diuretics. Excellent urine output. No indications for dialysis. cc: Magnus Villaseñor MD
--- NOTE | 2018-05-05 02:54 | INFECTIOUS DISEASE PROGRESS NO ---
DATE: 05/04/2018 PRESENT ILLNESS: The patient has a gram-negative cristiana urinary tract infection. He also has a right leg that has cellulitis. His left leg also has cellulitis but to a much lesser extent, and finally the patient has a left buttock decubitus ulcer which does not appear to be infected or if it is only minimally infected. MEDICATIONS: The patient is on a combination of Zyvox and cefepime. PHYSICAL EXAMINATION: Vital Signs: Temperature is 98 degrees, pulse 101, respirations 18, blood pressure 139/76. The patient weighs 220 pounds. General: This is a morbidly obese middle-aged male, he is in no acute distress. Head, eyes, ears, nose, and throat: He can hear my spoken words and see near objects. He does not have any white patches on his tongue. Neck: No stiffness. Lungs: Clear to auscultation. Cardiovascular: Regular heart rate. Abdomen: Soft and nontender. Extremities: The patient's right leg has a large dressing on it, the dressing is intact. The patient's left leg has a smaller dressing. There is minimal erythema on the left leg that are not dressed with a dressing. LABS AND X-RAYS: Creatinine is 2.1. GFR is 33. The right leg and urine are growing a gram- negative cristiana. The buttock decubitus ulcer culture is pending. The is no new radiographic study today. ASSESSMENT AND PLAN: The patient has a right leg cellulitis and a urinary tract infection. The patient's left buttock ulcer is minimally infected if at all. For right now I am going to continue with the current antibiotics consisting of Zyvox and cefepime. COMORBIDITIES: The patient is morbidly obese. cc: Hardeep Stewart MD
[2018-05-05] MEDS: ZYVOX PO SCH ×2 (06:50→17:11)
[2018-05-05] MEDS: PRILOSEC PO SCH (06:50)
[2018-05-05] MEDS: HUMALOG SUBQ SCH ×4 (06:51→22:07)
[2018-05-05] MEDS: LASIX IV SCH ×2 (06:51→16:32)
[2018-05-05] MEDS: MAXIPIME 1 GM in NS 50 ML IV SCH ×2 (06:51→16:33)
[2018-05-05 07:11] LABS: BASO# 0.03 X1000 (0.0-0.2); BASO% 0.5 % (0.0-0.8); EOS# 0.36 X1000 (0.0-0.7); EOS% 5.4 % (0.0-10.0); HEMATOCRIT 29.6 % (42.0-52.0); IMM GRAN# 0.02 X1000 (0.0-0.04); IMM GRAN% 0.3 % (0.0-0.5); LYMPH% 15.1 % (20.5-51.1); MCH 23.7 PG (27-31); MCV 87.6 FL (81-99); MONO# 0.65 X1000 (0.11-0.59); MONO% 9.8 % (1.7-9.3); MPV 10.9 FL (7.4-10.4); NEUT# 4.56 X1000 (1.4-6.5); NEUT% 68.9 % (42.2-75.2); PLT 278 X1000 (130-400); RBC 3.38 XMIL (4.7-6.1); RDW 17.5 % (11.5-14.5); WBC 6.62 X1000 (4.8-10.8)
[2018-05-05 07:39] LABS: ALB/GLOB RATIO 1.1; ALBUMIN 3.4 g/dL (3.5-5.0); CALCIUM 8.7 mg/dL (8.8-10.2); CREATININE 1.8 mg/dL (0.7-1.2); PHOSPHORUS 4.4 mg/dL (2.7-4.5); TOTAL BILIRUBIN 0.24 mg/dL (0.20-1.00); TOTAL PROTEIN 6.6 g/dL (6.3-8.3)
[2018-05-05] MEDS: NORCO-7.5 PO PRN ×2 (09:34→17:11)
[2018-05-05] MEDS: FLOMAX PO SCH (09:35)
[2018-05-05] MEDS: LIPITOR PO SCH (09:35)
[2018-05-05] MEDS: SYNTHROID PO SCH (09:36)
[2018-05-05] MEDS: SODIUM BICARBONATE PO SCH (09:36)
[2018-05-05] MEDS: ASPIRIN EC PO SCH (09:36)
[2018-05-05] MEDS: HEPARIN SUBQ SCH ×2 (09:36→22:08)
[2018-05-05] MEDS ORDERED: TESSALON PO PRN (11:58)
--- NOTE | 2018-05-05 13:08 | PROGRESS NOTE ---
DATE: 05/05/2018 INTERVAL HISTORY: The patient's lower extremity swelling and erythema are slightly improved. No other new complaints. No acute events overnight. REVIEW OF SYSTEMS: Twelve-point review of systems negative except as interval history. LAB: WBC 6.6, hemoglobin 8, hematocrit 29.6, platelets 278,000. Sodium 140, potassium 5, bicarbonate 21, BUN 17, creatinine 1.8, glucose 136 to 205. VITALS: T-max 98.9 degrees, pulse 94, respiratory rate 19, blood pressure 147/74, O2 saturation 100% on 4 L by nasal cannula. PHYSICAL EXAMINATION: General: In no acute distress. Vitals as above. HEENT: Normocephalic, atraumatic. Moist mucous membranes. Neck: No cervical adenopathy. Cardiovascular: Regular rate and rhythm. No murmurs, rubs, or gallops. Pulmonary: Clear to auscultation bilaterally, within the limits of body habitus. Abdomen: Soft, nontender. Anasarca still present but somewhat improved. Bowel sounds positive. Extremities: Peripheral pulses decreased but intact. Still with significant chronic venous stasis changes, but some improvement in pitting edema, and lower anterior leg erythema, much improved, fewer purulent blisters. Neurologic: Cranial nerves grossly intact. No focal deficits identified. Psychiatric: Normal mood and affect. Awake, alert and oriented x3. Skin: Sacral decubitus ulcer, bandaged. Bandage clean, dry, and intact. Erythema as above. ASSESSMENT AND PLAN: 1. Volume overload secondary to kidney disease. Patient has CKD 4 at baseline. Some mild improvement today. Responding to diuretics. Continue therapy and monitor. Nephrology following. 2. Hyperkalemia. Improved with Kayexalate and diuresis. Within normal limits now. I, again, discussed dietary compliance. The patient had been drinking large volumes of orange juice prior to admission. 3. Right lower extremity cellulitis, bilateral chronic venous stasis. The patient was initially started on Rocephin and vancomycin, changed to cefepime and Zyvox by Infectious Disease. Appears to be improving rapidly. Continue antibiotics as per ID and monitor. 4. Stage IV sacral decubitus ulcer, very large, but not signs of infection at this time. Continue bandaging. 5. Likely chronic diastolic congestive heart failure and pulmonary hypertension. On diuretics for edema but no clear signs of exacerbation at this time. Repeat echo showing left ventricular hypertrophy, low normal EF, and pulmonary hypertension with pressure of 55. 6. Diabetic mellitus. A1c 10.8. Glucose control is fair. Continue current therapy at this time. 7. Hypertension, reasonable control so far. Continue to monitor. 8. Chronic pain continue on [place]. 9. Anemia of chronic disease. Blood counts stable. Continue to monitor. 10. Morbid obesity and obstructive sleep apnea. The patient was instructed to use home CPAP while asleep. 11. Deep venous thrombosis prophylaxis. Heparin. DISPOSITION: Likely discharge home once Nephrology is satisfied with improvement in kidney function, and ID thinks we can safely transition him to p.o. antibiotics, likely 1 to 2 more days.
--- NOTE | 2018-05-06 01:04 | NEPHROLOGY PROGRESS NOTE ---
DATE: 05/05/2018 SUBJECTIVE: He is sitting up in a chair today. He continues to state he feels better each day. No shortness of breath, nausea or vomiting. OBJECTIVE: Vital Signs: Blood pressure 124/53, heart rate 101, respirations 20, afebrile. Intake total 5.3 L, output 11.5 L. General: Obese white male sitting up, no distress. Skin: Warm and dry. Conjunctivae are pink. Neck: Neck veins are not appreciated. Heart: Regular without gallops. Lungs: Equal without crackles. Abdomen: Obese, soft, nontender. Bowel sounds are present. Extremities: With 3+ edema. No clubbing or cyanosis. IMPRESSION: 1. Chronic kidney disease. Labs are improving daily. 2. Volume overload. Responding nicely to diuretics. Continue current care through the weekend. cc: Magnus Villaseñor MD
[2018-05-06] MEDS: MAXIPIME 1 GM in NS 50 ML IV SCH ×2 (05:20→16:11)
[2018-05-06] MEDS: LASIX IV SCH ×2 (05:20→16:11)
[2018-05-06] MEDS: PRILOSEC PO SCH (05:21)
[2018-05-06] MEDS: ZYVOX PO SCH ×2 (05:21→16:59)
[2018-05-06] MEDS: HUMALOG SUBQ SCH ×4 (06:02→22:19)
[2018-05-06 07:50] LABS: ALBUMIN 3.3 g/dL (3.5-5.0); CALCIUM 8.8 mg/dL (8.8-10.2); CREATININE 1.6 mg/dL (0.7-1.2); POTASSIUM 5.1 mmol/L (3.5-5.1)
[2018-05-06] MEDS: SODIUM BICARBONATE PO SCH (08:18)
[2018-05-06] MEDS: ASPIRIN EC PO SCH (08:18)
[2018-05-06] MEDS: NORCO-7.5 PO PRN ×2 (08:18→16:12)
[2018-05-06] MEDS: FLOMAX PO SCH (08:18)
[2018-05-06] MEDS: SYNTHROID PO SCH (08:18)
[2018-05-06] MEDS: LIPITOR PO SCH (08:18)
[2018-05-06] MEDS: HEPARIN SUBQ SCH ×2 (08:18→22:19)
--- NOTE | 2018-05-06 13:37 | PROGRESS NOTE ---
DATE: 05/06/2018 SUBJECTIVE: The patient is awake. Not in any obvious distress. OBJECTIVE: Vital signs: Temperature 97.6, pulse is 103 respirations 18, blood pressure is 118/50, oxygen saturation is 98%. HEENT: Atraumatic, normocephalic. Cardiovascular: S1, S2. Respiratory: Has evidence of good air entry bilaterally. Abdomen: Obese and nontender. Extremity: Patient does have edema in both lower extremities and also a wound dressing is still on both lower extremities. Central nervous system: No obvious focal deficits noted. DIAGNOSTIC STUDIES: Sodium is 138, potassium 5.1, chloride is 105, bicarbonate 20, BUN is 17, creatinine is 1.6, glucose is 133. ASSESSMENT AND PLAN: 1. Volume overload secondary to chronic kidney disease. Continue diuretics. Monitor intakes and outputs, as well as daily weights. Nephrology following. 2. Hyperkalemia. Today's potassium level is 5.1 which is marginally elevated. We will continue to follow up on potassium level. 3. Bilateral lower extremity chronic venous stasis as well as lower extremity cellulitis. Continue antibiotics as recommended by Infectious Disease, as well as local wound care. 4. Sacral decubitus ulcer. Continue local wound care. 5. Diabetes mellitus. Continue blood sugar monitor as well as sliding scale insulin. 6. Chronic obstructive pulmonary disease (COPD). Maintain patient on nebulized bronchodilators as needed. 7. Hypertension. Maintain the patient on antihypertensive medications if needed. 8. Anemia. Follow up on hemoglobin and hematocrit. Transfuse packed red blood cells (PRBCs) as needed. 9. Urinary tract infection. Urine culture positive for Klebsiella oxytoca. Antibiotic management per Infectious Disease. 10. Deep vein thrombosis (DVT) prophylaxis. Heparin. 11. Obstructive sleep apnea. The patient can use a CPAP machine from home. cc: Thomas Boyd MD
[2018-05-07] MEDS: LASIX IV SCH (05:09)
[2018-05-07] MEDS: MAXIPIME 1 GM in NS 50 ML IV SCH (05:09)
[2018-05-07] MEDS: ZYVOX PO SCH (05:09)
[2018-05-07] MEDS: HUMALOG SUBQ SCH (06:31)
[2018-05-07] MEDS: PRILOSEC PO SCH (06:38)
[2018-05-07 07:56] LABS: BASO# 0.04 X1000 (0.0-0.2); BASO% 0.6 % (0.0-0.8); EOS# 0.34 X1000 (0.0-0.7); EOS% 4.8 % (0.0-10.0); HEMATOCRIT 27.2 % (42.0-52.0); HEMOGLOBIN 7.3 g/dL (14.0-18.0); LYMPH# 0.97 X1000 (1.2-3.4); LYMPH% 13.8 % (20.5-51.1); MCH 23.5 PG (27-31); MCHC 26.8 g/dL (33-37); MCV 87.5 FL (81-99); MONO# 0.76 X1000 (0.11-0.59); MONO% 10.8 % (1.7-9.3); MPV 11.6 FL (7.4-10.4); NEUT# 4.93 X1000 (1.4-6.5); PLT 290 X1000 (130-400); RBC 3.11 XMIL (4.7-6.1); RDW 17.1 % (11.5-14.5); WBC 7.04 X1000 (4.8-10.8)
[2018-05-07 08:27] LABS: ALB/GLOB RATIO 1.1; ALBUMIN 3.6 g/dL (3.5-5.0); CREATININE 1.9 mg/dL (0.7-1.2); PHOSPHORUS 4.3 mg/dL (2.7-4.5); POTASSIUM 5.3 mmol/L (3.5-5.1); TOTAL BILIRUBIN 0.23 mg/dL (0.20-1.00); TOTAL PROTEIN 6.8 g/dL (6.3-8.3)
[2018-05-07 08:30] VITALS: BP 118/63
[2018-05-07] MEDS: FLOMAX PO SCH (08:40)
[2018-05-07] MEDS: ASPIRIN EC PO SCH (08:40)
[2018-05-07] MEDS: SODIUM BICARBONATE PO SCH (08:40)
[2018-05-07] MEDS: HEPARIN SUBQ SCH (08:40)
[2018-05-07] MEDS: SYNTHROID PO SCH (08:40)
[2018-05-07] MEDS: LIPITOR PO SCH (08:40)
[2018-05-07] MEDS: NORCO-7.5 PO PRN (08:49)
[2018-05-07] MEDS ORDERED: LASIX PO SCH (09:00)
--- NOTE | 2018-05-07 11:34 | INFECTIOUS DISEASE PROGRESS NO ---
DATE: 05/07/2018 PRESENT ILLNESS: The patient has a Klebsiella urinary tract infection, a Klebsiella cellulitis of the right leg, and a Pseudomonas-infected left buttock decubitus ulcer. MEDICATIONS: The patient has been on Zyvox and cefepime. PHYSICAL EXAMINATION: Vital Signs: Temperature is 98.3 degrees pulse 101, respirations 20, blood pressure 118/63. The patient weighs 317 pounds. He is 5 feet 11 inches tall. General: This is a morbidly obese, middle-aged male. He is in no acute distress. Head, eyes, ears, nose, and throat: He can hear my spoken words and see near objects. He does not have any white patches on his tongue. Neck: No meningismus. Lungs: Clear to auscultation. Cardiovascular: Regular heart rate. Abdomen: Soft and nontender. Extremities: Both legs have dressings on them. The dressings are intact. The patient has a dressing in the left buttock wound. Neurologic: The patient is awake. He can move his extremities. There is no tremor. LAB AND X-RAY: There is no new radiographic study. CBC shows a white count of 7040, hemoglobin 7.3, and platelet count 290,000. Creatinine is 1.9. GFR is 37. The patient's right leg and urine grew Klebsiella. The patient's left buttock wound grew Pseudomonas. ASSESSMENT AND PLAN: The patient is being sent home on Levaquin 500 mg daily for [address] Boyd is writing for the dressings needed for the patient's legs and his left buttock wound. I have requested that the patient come to my office in approximately 2 weeks for followup appointment. I have made a subscription for the patient's Levaquin through the computer. COMORBIDITIES: He is morbidly obese. cc: Hardeep Stewart MD
--- NOTE | 2018-05-07 15:23 | DISCHARGE SUMMARY ---
ADMISSION DATE: 05/02/2018 DISCHARGE DATE: 05/07/2018 PRINCIPAL DIAGNOSIS: Volume overload/fluid retention related to chronic kidney disease. SECONDARY DIAGNOSES: 1. Hyperkalemia. 2. Stage IV decubitus ulcer. 3. Diverting colostomy. 4. Urinary tract infection. Anemia. 5. Coronary artery disease. 6. Chronic pain syndrome. 7. Diabetes mellitus type 2. 8. Hypertension. 9. COPD. 10. Chronic kidney disease. 11. Morbid obesity. 12. Bilateral lower extremity chronic venous stasis as well as lower extremity cellulitis. 13. Obstructive sleep apnea. CONSULTATIONS DURING THIS HOSPITAL STAY: 1. Dr. Magnus Villaseñor, Nephrology. 2. Dr. Hardeep Stewart, Infectious Disease. PROCEDURES DONE THIS HOSPITAL STAY: 1. Renal ultrasound, 05/03/2018. 2. 2D echocardiogram 05/03/2018. HOSPITAL COURSE: Mr. Beto Oshea is a 57-year-old male who has a history of multiple medical conditions and was admitted to the hospital because of weight gain. He was also noted to have a markedly elevated potassium level. The patient was maintained on diuretics for volume overload and his potassium level was corrected. He was seen by the Nephrology team. A 2D echo of the heart showed normal LV chamber size with concentric LVH and he was noted to have estimated left ejection fraction to be about 50%. He was noted to have urinary tract infection secondary to Klebsiella oxytoca, and the patient will be discharged home on oral Levaquin. He was also seen by the Infectious Disease team with regard to cellulitis of the lower extremity. The patient did have local wound care as he does have chronic venous stasis in both lower extremities. At this time, the patient has done well. He is felt to be stable. He can now be discharged home. PHYSICAL EXAMINATION: Vital Signs: During my evaluation today, his vital signs are as follows: Temperature 98.3 degrees, pulse 101, respirations 20, blood pressure 118/63, oxygen saturation 98%. HEENT: Atraumatic, normocephalic. Cardiovascular: S1, S2. Respiratory: Evidence of good air entry bilaterally. Abdomen: Obese. He has a colostomy present. Extremities: Wound dressings on both lower extremities. Central nervous system: No obvious focal deficits noted. PLAN: The patient can be discharged home today and will need to follow up with Infectious Disease as well as Nephrology after discharge. cc: Thomas Boyd MD
--- NOTE | 2018-05-07 18:19 | NEPHROLOGY PROGRESS NOTE ---
DATE: 05/07/2018 TIME SEEN: 729 SUBJECTIVE: Mr. Oshea is resting quietly in bed. Head of the bed is elevated. He states that he is ready to go home. He does deny any increased work of breathing, states he feels much better. VITAL SIGNS: His most recent vital signs show last temperature 98.3 degrees, blood pressure 118/63, heart rate 101, respirations 20. He is on room air. Last recorded saturation is 94%. The patient has a Atkins catheter at home. This is currently intact. He has had 290 in, 4100 out. LABORATORY DATA: Sodium 142, potassium 5.3, chloride 107, CO2 22, BUN 72, creatinine 1.9, glucose 121. Anion gap 13, calcium 9, phosphorus 4.3, albumin 3.6. White count 7.04, hemoglobin 7.3, hematocrit 27.2 with a platelet count of 290,000. PHYSICAL EXAMINATION: General: This is a 57-year-old white male who is now sitting on the side of the bed. He appears chronically ill, though no acute distress. Skin: Warm and dry. HEENT: Normocephalic, atraumatic. Conjunctivae pale. He has [place]. Mucous membranes are dry. Neck: Supple. Trachea midline. No evidence of JVD in the upright position. Cardiovascular: He is regular rate and rhythm. He is without gallop. Lungs: Diminished secondary to body habitus. Clear to auscultation anterior. He is on room air. Abdomen: Obese, soft, nontender. Positive bowel sounds. The patient has a Atkins catheter in place. Extremities: Continues with 2+ lower extremity edema. Neurological: Alert and oriented x3. ASSESSMENT AND PLAN: 1. Chronic kidney disease stage 4. Labs continue to improve daily. He has had adequate urine output. No indications for intervention. We will plan for follow up in 2-3 weeks after discharge. 2. Electrolytes and acid-base balance. These are acceptable. 3. Fluid volume overload. We will change the patient's Lasix 60 mg intravenously to p.o. b.i.d. We have discussed patient to weigh daily. He is to call if his weight starts to go up before he has increased weight gain and swelling as in this last admission. I would like to thank you for allowing us to follow with this patient. Dictated by GIRMA Prasad for Magnus Villaseñor MD Face to face encounter, data reviewed, discussed with Zoran Rodriguez on 05/07/18. I agree with the above assessment and plan of care. cc: GIRMA Prasad MD [facility]
== END 2018-05-07 13:51 | disposition hospice, home (50) | DRG 640 ==
LOC: ED 13:53 → EDIPHOLD 19:02 → SUATTDRO 19:02 → 3N 22:43
PROVIDERS: ATTEND Internal Medicine
CPT/HCPCS: 51702; 71010; 71045; 76770; 80053; 80069; 81001; 82550; 82570; 82948; 83735; 83880; 84100; 84132; 84156; 84300; 84484; 84540; 85025; 85610; 85730; 87070; 87077; 87088; 87186; 93005; 93010; 93306; 94640; 94761; 94762; 96365; 96372; 96375; 97162; 97530; 99285; A9270; C8929; J0610; J0692; J0696; J1644; J1815; J1940; Q9957; XXXXX

== ENCOUNTER 2018-05-14 12:48 | Inpatient (IN) ==
[2018-05-14] MEDS: DOPAMINE 800 MG/D5W 800 MG/500 ML IV.SOLN IV SCH ×2 (13:02→21:59)
[2018-05-14] MEDS ORDERED: ATROPINE IV ONE (13:15)
[2018-05-14] MEDS ORDERED: FENTANYL IV ONE (13:23)
[2018-05-14] MEDS ORDERED: FENTANYL 1,000 MICROGM in NS 80 ML IV SCH (13:30)
[2018-05-14 13:31] LABS: BASO# 0.04 X1000 (0.0-0.2); BASO% 0.3 % (0.0-0.8); EOS# 0.17 X1000 (0.0-0.7); EOS% 1.4 % (0.0-10.0); HEMATOCRIT 27.4 % (42.0-52.0); HEMOGLOBIN 7.5 g/dL (14.0-18.0); IMM GRAN# 0.09 X1000 (0.0-0.04); IMM GRAN% 0.7 % (0.0-0.5); LYMPH# 1.59 X1000 (1.2-3.4); LYMPH% 12.7 % (20.5-51.1); MCH 23.7 PG (27-31); MCHC 27.4 g/dL (33-37); MCV 86.4 FL (81-99); MONO# 1.12 X1000 (0.11-0.59); MPV 11.4 FL (7.4-10.4); NEUT# 9.49 X1000 (1.4-6.5); NEUT% 75.9 % (42.2-75.2); PLT 353 X1000 (130-400); RBC 3.17 XMIL (4.7-6.1); RDW 17.7 % (11.5-14.5)
[2018-05-14 13:38] LABS: INR 1.51; PROTIME 19.4 Seconds (11.0-16.0)
[2018-05-14 13:39] LABS: PTT 35.5 Seconds (22.3-41.8)
[2018-05-14 13:48] LABS: ALLEN TEST YES; BLOOD TYPE ARTERIAL; HCO3-(ACT) 15.5 mmoll (20.0-26.0); METHB 1.1 % (0.0-1.5); O2(CT) 10.5 mL/dL (15.0-23.0); O2HB 90.9 % (95.0-99.0); PO2(98.6) 71 mmHg (60-100); SAMPLE BLOOD; SAO2 93.9 % (95.0-100.0); SRATE 15 BPM; THB 8.1 g/dL (11.5-17.4); TVOL 500 mL
[2018-05-14 13:51] LABS: PCO2(98.6) 55 mmHg (35-45)
[2018-05-14 13:52] LABS: URINE SOURCE CATH
[2018-05-14 13:52] LABS: MODALITY VENTILATOR
[2018-05-14 13:56] LABS: BILIRUBIN URINE SMALL (NEGATIVE); BLOOD URINE SMALL (NEGATIVE); COLOR YELLOW; GLUCOSE URINE NEGATIVE (NEGATIVE); KETONE URINE NEGATIVE (NEGATIVE); LEUKOCYTES URINE SMALL (NEGATIVE); NITRITE URINE NEGATIVE (NEGATIVE); PROTEIN URINE 50 mg/dL (NEGATIVE); SP GRAVITY URINE 1.018; TURBIDITY URINE HAZY (CLEAR); UR EPITHELIAL CELLS <10 /HPF (<10); URINE BACTERIA NEGATIVE /HPF; URINE WBC <10 /HPF (<10); UROBILINOGEN URINE NORMAL (NORMAL)
[2018-05-14 14:02] LABS: URINE CASTS NONE SEEN; URINE YEAST NONE SEEN
[2018-05-14] MEDS ORDERED: SODIUM BICARBONATE 8.4% IV PUSH ONE (14:24)
[2018-05-14] MEDS ORDERED: HUMULIN R IV ONE (14:24)
[2018-05-14] MEDS ORDERED: CALCIUM CHLORIDE 1 GM in NS 100 ML IV ONE (14:24)
[2018-05-14 14:25] LABS: ALB/GLOB RATIO 1.1; ALBUMIN 3.2 g/dL (3.5-5.0); CALCIUM 8.5 mg/dL (8.8-10.2); CREATININE 4.3 mg/dL (0.7-1.2); POTASSIUM 9.2 mmol/L (3.5-5.1); TOTAL BILIRUBIN 0.25 mg/dL (0.20-1.00); TOTAL PROTEIN 6.2 g/dL (6.3-8.3)
[2018-05-14] MEDS ORDERED: D50W 500 ML IV SCH (14:30)
[2018-05-14] MEDS ORDERED: D50W SYRINGE IV ONE (14:31)
[2018-05-14] MEDS ORDERED: ALBUTEROL 0.5% INH CONC FOR HYPERKALEMIA INH ONE (14:45)
[2018-05-14] MEDS ORDERED: ALBUTEROL NEB INH ONE (14:47)
[2018-05-14] MEDS ORDERED: SODIUM BICARBONATE 8.4% IV ONE (15:24)
[2018-05-14] MEDS ORDERED: VANCOMYCIN 1 GM/NS 1 GM/250 ML IVPB IV ONE (15:38)
[2018-05-14] MEDS ORDERED: NS 2,000 ML MISC PRN (15:43)
--- NOTE | 2018-05-14 15:50 | Diag Imaging Result Doc PS360 ---
EXAM: CHEST-PORTABLE HISTORY: ET placement TECHNIQUE: Chest single view COMPARISON: 05/02/2018 FINDINGS: There is an endotracheal tube in good position located approximately 2 cm above the christiana. Poor lung expansion. Heart remains enlarged. There is pulmonary edema as well as a small to moderate-sized right-sided pleural effusion. IMPRESSION: Endotracheal tube in good position. Electronically signed by German Yi 05/14/2018 3:48 PM
[2018-05-14] MEDS ORDERED: DIPRIVAN 1% 1,000 MG/100 ML BOTTLE IV SCH (16:00)
[2018-05-14] MEDS ORDERED: DUONEB (A & A) INH PRN (16:00)
[2018-05-14] MEDS ORDERED: MORPHINE IV PRN (16:00)
--- NOTE | 2018-05-14 16:23 | PROVIDER DOCUMENTATION ---
This chart was entered by Nury Medeiros Scribe, acting as scribe for Heather Walker MD. HPI-Respiratory General - General Stated Complaint: SOB Time Seen by Provider: 05/14/18 12:48 Source: EMS Allergies/Adverse Reactions: Patient Allergies Allergy/AdvReac Type Severity Reaction Status Date / Time No Known Allergies Allergy Verified 09/12/17 09:59 Home Medications: Home Medication List Medication Instructions Recorded Confirmed Last Taken Type Aspirin [Aspirin EC] 81 mg PO DAILY #30 tablet. 08/29/17 05/02/18 Unknown Rx Furosemide [Lasix] 40 mg PO BID 09/12/17 05/02/18 Unknown History ATORVAstatin [Lipitor] 20 mg PO DAILY 05/02/18 05/02/18 Unknown History Amlodipine [Norvasc] 5 mg PO BID 05/02/18 05/02/18 Unknown History Atenolol 50 mg PO DAILY 05/02/18 05/02/18 Unknown History Dexlansoprazole [Dexilant] 1 cap PO DAILY 05/02/18 05/02/18 Unknown History Insulin NPH Hum/Reg Insulin Hm 20 unit SQ BID 05/02/18 05/02/18 Unknown History [Novolin 70-30 Flexpen] Levothyroxine [Synthroid] 50 mcg PO DAILY 05/02/18 05/02/18 Unknown History Sodium Bicarbonate 1 tab PO DAILY 05/02/18 05/02/18 Unknown History Tamsulosin [Flomax] 1 cap PO DAILY 05/02/18 05/02/18 Unknown History Levofloxacin [Levaquin] 500 mg PO DAILY #14 tab 05/07/18 Unknown Rx - History of Present Illness-Resp Nature of Presenting Problem: Patient is a 57 year old male who presents to the ED via EMS with respiratory distress. EMS states the call came in as shortness of breath. EMS states on their arrival patient became apneic. EMS states they intubated the patient and gave the patient 150 of Ketamine. EMS states patient was discharged from the hospital yesterday. Quality of Pain: reports: tightness Severity in ED: reports: severe Onset/Duration: reports: unsure Timing: reports: still present Current Respiratory Medication Therapy: Initiated see nurses note Modifying Factors: improves with: nothing Associated Symptoms: reports: shortness of breath Similar Symptoms Previously?: Yes Recently seen or treated by another doctor?: Yes Review of Systems - Adult - REVIEW OF SYSTEMS - ADULT ROS:: unobtainable per condition Constitutional: reports: no symptoms reported Eyes: reports: no symptoms reported Ears, Nose, Mouth & Throat: reports: no symptoms reported Cardiovascular: reports: no symptoms reported Respiratory: reports: no symptoms reported Gastrointestinal: reports: no symptoms reported Genitourinary: reports: no symptoms reported Musculoskeletal: reports: no symptoms reported Integumentary: reports: no symptoms reported Neurological: reports: no symptoms reported Psychiatric: reports: no symptoms reported Endocrine: reports: no symptoms reported Hematologic/Lymphatic: reports: no symptoms reported Allergic/Immunologic: reports: no symptoms reported All Other Systems: Reviewed and Negative Past History - Adult - PAST MEDICAL HISTORY-ADULT Review of Records: reports: Nursing Assessment Review, Medications Reviewed, Social history reviewed & non-contributory. Major Childhood Illnesses: reports: denies history Cardiovascular: reports: CHF, HTN, [place] Respiratory: reports: COPD, sleep apnea Gastrointestinal: reports: denies history Obstetrical/Gynecological: reports: denies history Genitourinary: reports: dialysis (Tues,Thurs, Sat), ESRD, kidney disease Musculoskeletal: reports: other (Restless leg syndrome) Neurological: reports: denies history Endocrine/Immune: reports: Diabetes Other Conditions: reports: denies history - PRIOR SURGERIES/PROCEDURES Surgical/Procedure History: reports: CABG, cholecystectomy, hernia repair, orthopedic (extremity) (right knee, right thumb sx), other (triple bypass) - IMMUNIZATION STATUS Childhood Immunizations: UTD Flu Vaccine: See Nurse Assessment - FAMILY HISTORY Family History: reviewed, not pertinent - SOCIAL HISTORY Smoking: cigarettes (former) Substance Use: denies Living Situation: family Physical Exam-General - PHYSICAL EXAM-ADULT Initial Vital Signs Reviewed: Yes - CONSTITUTIONAL General Appearance: alert, mild distress, obese - HEAD, EARS, NOSE, MOUTH & THROAT HENMT: other (intubation in place) - RESPIRATORY Respiratory: other (distant breath sounds bilaterally) - CARDIOVASCULAR Cardiovascular: bradycardia - GASTROINTESTINAL (ABDOMEN) Abdominal Exam: distended, other (colostomy in place) - MUSCULOSKELETAL Extremity: other (nuno wrap to bilateral lower extremities) - SKIN Integumentary: normal color, warm/dry - NEUROLOGIC Neurologic: other (unable to assess per patient's condition) Progress - PLAN OF CARE/RESULTS Progress/Plan/Lab Results: Vital Signs - 8 hr 05/14/18 12:45 Pulse Rate 45 L Respiratory Rate 15 Blood Pressure 85/48 O2 Sat by Pulse Oximetry 91 L Laboratory Results - last 24 hr 05/14/18 05/14/18 05/14/18 12:53 13:00 13:00 WBC 12.50 H RBC 3.17 L Hgb 7.5 L Hct 27.4 L MCV 86.4 MCH 23.7 L MCHC 27.4 L RDW Std Deviation 17.7 H Plt Count 353 MPV 11.4 H Immature Gran % (Auto) 0.7 H Neut % (Auto) 75.9 H Lymph % (Auto) 12.7 L Mccone % (Auto) 9.0 Eos % (Auto) 1.4 Baso % (Auto) 0.3 Immature Gran # (Auto) 0.09 H Neut # (Auto) 9.49 H Lymph # (Auto) 1.59 Mccone # (Auto) 1.12 H Eos # (Auto) 0.17 Baso # (Auto) 0.04 PT INR PTT (Actin FS) Specimen Type ARTERIAL Sample Site R RADIAL pH 7.10 L* pCO2 55 H* pO2 71 HCO3 15.5 L Base Excess -12.0 L Oxyhemoglobin 90.9 L ABG O2 Sat (Calculated) 10.5 L ABG O2 Saturation 93.9 L ABG Carboxyhemoglobin 2.20 ABG Methemoglobin 1.1 Rex Test YES A-a O2 Difference 359.0 Total Hemoglobin 8.1 L Lactate 1.30 Blood Gas Modality VENTILATOR Spontaneous Rate 15 FiO2 % 70.0 Tidal Volume 500 PEEP 5.0 Sodium 132 L Potassium 9.2 H* Chloride 103 Carbon Dioxide 17 L Anion Gap 12 BUN 135 H Creatinine 4.3 H Estimated GFR/1.73 m2 14 BUN/Creatinine Ratio 31 Glucose 143 H POC Glucose Calculated Osmolality 310 Calcium 8.5 L Total Bilirubin 0.25 AST 15 ALT 10 Alkaline Phosphatase 84 Creatine Kinase 59 Troponin T Total Protein 6.2 L Albumin 3.2 L Globulin 3.0 Albumin/Globulin Ratio 1.1 Urine Source Urine Color Urine Turbidity Urine pH Ur Specific [place] Urine Protein Ur Glucose (Stick) Ur Ketones (Stick) Urine Blood Urine Nitrite Urine Bilirubin Urobilinogen Dipstick Urine Leukocytes Urine WBC (Auto) Urine RBC (Auto) U Epithel Cells (Auto) Urine Bacteria (Auto) Urine Crystals Small Round Cells Urine Casts Urine Yeast-like Cells 05/14/18 05/14/18 05/14/18 13:00 13:00 13:39 WBC RBC Hgb Hct MCV MCH MCHC RDW Std Deviation Plt Count MPV Immature Gran % (Auto) Neut % (Auto) Lymph % (Auto) Mccone % (Auto) Eos % (Auto) Baso % (Auto) Immature Gran # (Auto) Neut # (Auto) Lymph # (Auto) Mccone # (Auto) Eos # (Auto) Baso # (Auto) PT 19.4 H INR 1.51 PTT (Actin FS) 35.5 Specimen Type Sample Site pH pCO2 pO2 HCO3 Base Excess Oxyhemoglobin ABG O2 Sat (Calculated) ABG O2 Saturation ABG Carboxyhemoglobin ABG Methemoglobin Rex Test A-a O2 Difference Total Hemoglobin Lactate Blood Gas Modality Spontaneous Rate FiO2 % Tidal Volume PEEP Sodium Potassium Chloride Carbon Dioxide Anion Gap BUN Creatinine Estimated GFR/1.73 m2 BUN/Creatinine Ratio Glucose POC Glucose Calculated Osmolality Calcium Total Bilirubin AST ALT Alkaline Phosphatase Creatine Kinase Troponin T 0.203 H Total Protein Albumin Globulin Albumin/Globulin Ratio Urine Source CATH Urine Color YELLOW Urine Turbidity HAZY Urine pH 5.0 Ur Specific [place] 1.018 Urine Protein 50 A Ur Glucose (Stick) NEGATIVE Ur Ketones (Stick) NEGATIVE Urine Blood SMALL A Urine Nitrite NEGATIVE Urine Bilirubin SMALL A Urobilinogen Dipstick NORMAL Urine Leukocytes SMALL A Urine WBC (Auto) <10 Urine RBC (Auto) 10-20 A U Epithel Cells (Auto) <10 Urine Bacteria (Auto) NEGATIVE Urine Crystals Not Reportable Small Round Cells Not Reportable Urine Casts NONE SEEN Urine Yeast-like Cells NONE SEEN 05/14/18 13:44 WBC RBC Hgb Hct MCV MCH MCHC RDW Std Deviation Plt Count MPV Immature Gran % (Auto) Neut % (Auto) Lymph % (Auto) Mccone % (Auto) Eos % (Auto) Baso % (Auto) Immature Gran # (Auto) Neut # (Auto) Lymph # (Auto) Mccone # (Auto) Eos # (Auto) Baso # (Auto) PT INR PTT (Actin FS) Specimen Type Sample Site pH pCO2 pO2 HCO3 Base Excess Oxyhemoglobin ABG O2 Sat (Calculated) ABG O2 Saturation ABG Carboxyhemoglobin ABG Methemoglobin Rex Test A-a O2 Difference Total Hemoglobin Lactate Blood Gas Modality Spontaneous Rate FiO2 % Tidal Volume PEEP Sodium Potassium Chloride Carbon Dioxide Anion Gap BUN Creatinine Estimated GFR/1.73 m2 BUN/Creatinine Ratio Glucose POC Glucose 166 H Calculated Osmolality Calcium Total Bilirubin AST ALT Alkaline Phosphatase Creatine Kinase Troponin T Total Protein Albumin Globulin Albumin/Globulin Ratio Urine Source Urine Color Urine Turbidity Urine pH Ur Specific [place] Urine Protein Ur Glucose (Stick) Ur Ketones (Stick) Urine Blood Urine Nitrite Urine Bilirubin Urobilinogen Dipstick Urine Leukocytes Urine WBC (Auto) Urine RBC (Auto) U Epithel Cells (Auto) Urine Bacteria (Auto) Urine Crystals Small Round Cells Urine Casts Urine Yeast-like Cells Orders Category Date Time Status Cardiac Monitoring DIRECTED Care 05/14/18 12:52 Active Finger Stick Blood Sugar (ED) DIRECTED Care 05/14/18 12:52 Active Misc. NRSG Communication Order DIRECTED Care 05/14/18 12:52 Active Saline Loc NOW Care 05/14/18 12:52 Active MD [Physician/Provider Consults] Stat Cons 05/14/18 14:46 Ordered ABG [RESP] Routine Lab 05/14/18 12:53 Completed CBC WITH ELECTRONIC DIFF [HEME] Stat Lab 05/14/18 13:00 Completed CK PROFILE [SP CHEM] Stat Lab 05/14/18 13:00 Completed COMPREHENSIVE METABOLIC PANEL [CHEM] Stat Lab 05/14/18 13:00 Completed PROTIME WITH INR [COAG] Stat Lab 05/14/18 13:00 Completed PTT [COAG] Stat Lab 05/14/18 13:00 Completed TROPONIN T Stat Lab 05/14/18 13:00 Completed URINALYSIS W/POSS RFLX CULT [URINALYSIS] Stat Lab 05/14/18 13:39 Completed URINE CULTURE [RM] Routine Lab 05/14/18 14:11 Received URINE MANUAL MICROSCOPIC [URINALYSIS] Stat Lab 05/14/18 13:39 Completed 0.9% Sodium Chloride Inj [Ns] 80 ml Med 05/14/18 13:30 Active Fentanyl 1,000 microgm IV As Directed Albuterol 0.5% INH Conc [Albuterol 0.5% INH Conc For Med 05/14/18 14:45 Discontinued Hyperkalemia] 25 mg INH NOW ONE Albuterol [Albuterol Neb] Med 05/14/18 14:47 Discontinued 2.5 mg INH NOW ONE Atropine Med 05/14/18 13:15 Discontinued 0.5 mg IV NOW ONE Calcium Chloride 1 gm Med 05/14/18 14:24 Active 0.9% Sodium Chloride Inj [Ns] 100 ml IV NOW Dextrose 50% Syringe [D50w Syringe] Med 05/14/18 14:31 Discontinued 50 ml IV NOW ONE Dextrose 50% Water Inj. [D50w] 500 ml Med 05/14/18 14:30 Discontinued IV 999 mls/hr Dopamine 800 mg/D5w Med 05/14/18 13:00 Active 800 mg in 500 ml IV As Directed Fentanyl Med 05/14/18 13:23 Discontinued See Dose Instructions IV NOW ONE Insulin Human Regular [Humulin R] Med 05/14/18 14:24 Discontinued 10 unit IV NOW ONE Sodium Bicarbonate 8.4% Med 05/14/18 14:24 Discontinued 50 meq IV PUSH NOW ONE Aerosol Treatments Routine Oth 05/14/18 14:45 Active Aerosol Treatments Routine Oth 05/14/18 14:48 Active Aerosol Treatments Stat Oth 05/14/18 14:45 Active Aerosol Treatments Stat Oth 05/14/18 14:48 Active Ventilator Order Stat Oth 05/14/18 13:53 Active EKG [EKG] Stat Ther 05/14/18 12:52 Ordered Transfer/Admit Order [TRANSFER] Routine Transfer 05/14/18 14:46 Ordered Result Diagrams: 05/14/18 13:00 05/14/18 13:00 - CONSULTS/PCP/HOSPITALIST Notification #1 *Consult/PCP/Hospitalist*: Dr. Villaseñor Time Discussed: 13:52 Reason/Comments: Dr. Walker consulted with Dr. Villaseñor about patient. Consult Disposition: other (admit to hospitalist and he will consult on patient. ) #2 Consult: GIRMA Perales for Hospitalist Time Discussed: 14:42 Reason/Comments: Dr. Walker consulted with Angella about patient. Consult Disposition: Will see in ED, Admit #3 Consult: Dr. Villaseñor Time Discussed: 14:51 Reason/Comments: Dr. Walker consulted with Dr. Villaseñor about patient Consult Disposition: other (Dr. Walker informed Dr. Villaseñor about patient's current condition.) Departure - Departure Date of Disposition Decision: 05/14/18 Time of Disposition Decision: 14:48 DIAGNOSIS: Hyperkalemia, HTN (hypertension), Fluid overload, Respiratory failure, ESRD ( end stage renal disease) Disposition: ADMITTED INPATIENT 09 Certified Medical Emergency: Emergent Condition: Critical Referrals and Follow-Ups: Fariba Heard MD [Primary Care Provider] - - Critical Care Note This patient required my direct & personal management of CC.: Yes Total Time (mins): 42 Critical Care Statement: This patient required my direct personal management to treat or rule out processes, the absence of which, could potentiallly result in sudden, clinically significant life or limb threatening deterioration. Attestation - Physician/ ADEOLA Attestation The physician spent face to face time with patient:: Yes Advanced Practice Provider documentation review:: Supervising physician onsite and consulted in the evaluation and care of this patient. The physician did have a face to face encounter with the patient. This chart was documented by the indicated scribe, (Nury Medeiros Scribe) and accurately reflects the services I performed and decisions made by me, Heather Walker MD, as attested by the provider's signature.
[2018-05-14 16:53] LABS: ALLEN TEST NO; BE -10.8 mmoll (-3.0-3.0); BLOOD TYPE ARTERIAL; HCO3-(ACT) 16.5 mmoll (20.0-26.0); METHB 1.2 % (0.0-1.5); O2(CT) 11.2 mL/dL (15.0-23.0); O2HB 95.5 % (95.0-99.0); PO2(98.6) 98 mmHg (60-100); SAMPLE BLOOD; SAO2 98.5 % (95.0-100.0); SRATE 15 BPM; THB 8.2 g/dL (11.5-17.4); TVOL 600 mL
[2018-05-14] MEDS: HUMULIN R SUBQ SCH ×2 (16:55→21:10)
[2018-05-14 16:57] LABS: MODALITY VENTILATOR; PCO2(98.6) 52 mmHg (35-45); pH(98.6) 7.14 (7.35-7.45)
--- NOTE | 2018-05-14 17:21 | HISTORY AND PHYSICAL ---
PRIMARY CARE PROVIDER: Dr. Heard. CAR FRAMER: Dr. Villaseñor. CHIEF COMPLAINT: Per at bedside shortness of breath. HISTORY OF PRESENT ILLNESS: Mr. Oshea is a 57-year-old male known to Dr. Villaseñor' service for outpatient clinic for his chronic kidney disease stage 4 to 5. Per the at the bedside patient has been in and out of [facility] and [facility] over the past year as well as in and out of rehab. He has a stage IV decubitus that he had surgery for at [facility] with a diverting colostomy. He came in again still bedbound with [facility] per . She reported a 14 pound weight gain since this weekend. The patient has rescinded his hospice to come to the hospital to be a full code and receive all treatments. He declined upon arrival to the ED and required intubation. He is now intubated on a fentanyl drip and bilateral wrist restraints. He had a potassium of 9 and a BUN of 135 with a creatinine of 4.3. He was recently discharged from our service on 05/07/2018 with a BUN of 72 and a creatinine of 1.9. Chest x-ray continues to show pulmonary edema with small to moderate pleural effusion effusions that are right sided. He was also bradycardic in the 40s and initiated on a dopamine drip. His heart rate was maintaining around 58. He will be admitted to the ICU. He will have an emergent hemodialysis catheter placed by Dr. Dent and initiated on hemodialysis. He did receive hypokalemic treatment and we will cover him with IV vancomycin as well as a sodium bicarbonate push for his metabolic acidosis and consult Dr. Shah for his acute respiratory failure. REVIEW OF SYSTEMS: A 14 point review of systems unable to obtain secondary to the patient being intubated and sedated on a fentanyl drip. PAST MEDICAL HISTORY: 1. Chronic kidney disease stage 4. 2. Diabetes mellitus type 2. 3. Hypertension. 4. Hyperlipidemia. 5. Coronary artery disease. 6. Morbid obesity. 7. Chronic pain. 8. Sleep apnea. Patient wears CPAP machine at night. 9. Anemia of chronic disease. 10. Chronic edema from abdomen through bilateral lower extremities 11. Next COPD, end-stage, for which the patient is on hospice with [facility]. 12. Stage IV decubitus that has been present for several months now. He had a diverting colostomy done at [facility] for this. PAST SURGICAL HISTORY: 1. CABG. 2. Cholecystectomy. 3. Knee surgery. 4. Hernia repair. 5. Vascular surgery in the lower extremities. 6. Stage IV sacral decubitus with diverting colostomy performed at [facility]. SOCIAL HISTORY: Patient lives with his . He lives at home with [facility]. No tobacco, alcohol or illicit drug use. FAMILY HISTORY: Noted for kidney disease as well as heart disease. ALLERGIES: No known drug allergies. HOME MEDICATIONS: Have not been reconciled. PHYSICAL EXAMINATION: VITAL SIGNS: No temperature has been documented. Initial heart rate 45 to 48, now 58 after dopamine drip. Respiratory rate 15, initial blood pressure was 80s over 40s. In the room, he was 1 teens over 60s, 91% on mechanical ventilation. GENERAL: Mr. Oshea is a 57-year-old gentleman who is lying in the bed, sedated on a fentanyl drip and intubated. He is on bilateral soft wrist restraints. He does not follow commands. HEENT: Atraumatic, normocephalic. PERRL. He does have an ET tube. NECK: Supple, trachea midline, CARDIOVASCULAR: S1, S2 appreciated. No murmurs, gallops, or rubs noted. I could not assess pedal pulses secondary to the patient having his bilateral lower extremities heavily wrapped. Could not assess JVD secondary to the patient's morbid obesity. GENITOURINARY: Atkins draining clear urine. GASTROINTESTINAL: Stomach is morbidly obese. He does have body wall edema that is pitting. I did not appreciate any tenderness to palpation, hypoactive bowel sounds 4 quadrants. He does have a diverting colostomy on the left. PULMONARY: Rales throughout lung mills. He is bilaterally decreased in the bases. NEUROLOGIC: Again patient is intubated and on a fentanyl drip. DIAGNOSTIC DATA: Chest x-ray shows an ET tube in good position. His heart remains enlarged. The pulmonary edema as well as a small to moderate size right-sided pleural effusion. EKG pending. White count 12, hemoglobin and hematocrit 7.5 and 27.4, platelet count is 353, 000. ABG, pH was 7.10, pCO2 of 55, PO2 71, bicarb 15.5, base excess was -12, O2 saturation 93.9 on the ventilator, had FiO2 of 70%. Chemistry: Sodium 132, potassium 9.2, chloride 103, carbon dioxide 17, BUN 135 , creatinine 4.3, blood glucose is 143. Troponin 0.203. Urine is negative for bacteria, negative for nitrites. ASSESSMENT AND PLAN: 1. Acute renal failure on chronic kidney disease with hyperkalemia. The patient is going to undergo an emergent hemodialysis catheter with Dr. Dent and receive emergent hemodialysis. 2. Hyperkalemia. The patient was given hyperkalemia treatment in the ED as well as hypokalemic breathing treatment and will continue on emergent hemodialysis. 3. Bradycardia. The patient was placed on a dopamine drip. We will continue. 4. Hypotension will continue with dopamine. The patient is now normotensive. 5. Metabolic acidosis secondary to acute renal failure and respiratory failure with hypercarbia. We will continue on ventilatory support. Consult Pulmonology. 6. Anemia, chronic in nature. No active bleeding. 7. Diabetes mellitus type 2. Continue with pattern blood sugars and sliding scale insulin. 8. Stage IV decubitus ulcer with diverting colostomy. Wound care has been made aware of the patient's readmission. 9. Fluid volume overload secondary to acute renal failure. We will continue with emergent hemodialysis. Strict I Os, daily weights. Routine labs. 10. Acute hypercarbic respiratory failure requiring intubation see #5 11. End-stage chronic obstructive pulmonary disease. The patient had been at home with [facility]. He has now rescinded hospice twice to come in to be a full code and receive full treatment. We will consult palliative care again. 12. Further recommendations to follow physician evaluation, laboratory, and diagnostic data CRITICAL CARE TIME: 45 minutes. Dictated by GIRMA Nayak for Geni Collier MD cc: Geni Collier MD I performed a face to face encounter on the patient. I reviewed all labs and imaging for the patient. I agree with the H&P as dictated. The patient was brought to the ER in acute respiratory failure and subsequently intubated and placed on the ventilator. The patient was noted to have a potassium of >9. He was also noted to be severely volume overloaded. The patient was initially on hospice prior to admission but decided to become a full code prior to intubation. The patient was noted to be bradycardic as a result of the severe hyperkalemia so a dopamine drip was started. The case was discussed with who recommended initiation of emergent hemodialysis. was consulted for dialysis catheter placement. The patient was treated medically in the ER for the hyperkalemia. On exam, the patient is sedated on a fentanyl drip. He has coarse breath sounds with crackles. Anasarca is noted on the extremities and trunk. The patient will be admitted to the ICU in critical condition. The patient's family was informed about the patient's critical condition as well as the high risk of mortality in this case. JEFF
--- NOTE | 2018-05-14 18:07 | Diag Imaging Result Doc PS360 ---
EXAM: CHEST-PORTABLE INDICATION: vas cath placement TECHNIQUE: One view COMPARISON: 05/14/2018 FINDINGS: The ET tube is in stable position. There has been interval placement of a right Vas-Cath. The tip projects over the region of the lower SVC in the expected position. The patient is rotated significantly toward the right. There is a crescentic density at the right lung apex. A small pneumothorax cannot completely be excluded. If so, it appears to be less than 5% of the right hemithorax. Otherwise, the chest is stable as compared to the recent prior study. IMPRESSION: Interval placement of right Vas-Cath with a small crescentic density at the right lung apex that may represent a tiny pneumothorax. Follow-up radiograph is recommended. Electronically signed by Aries Almaguer 05/14/2018 6:06 PM
--- NOTE | 2018-05-14 19:31 | Diag Imaging Result Doc PS360 ---
EXAM: CHEST-PORTABLE INDICATION: vas cath placement TECHNIQUE: One view COMPARISON: 05/14/2018 FINDINGS: The ET tube and vas catheter are in stable positions. The patient is still rotated toward the right but less so than the previous study. The questionable pneumothorax at the right lung apex is not identified on the current study. This was probably an artifact due to the positioning of the patient on the previous study. Otherwise, pulmonary edema, pulmonary venous congestion and right pleural effusion are approximately stable given differences in positioning. IMPRESSION: No pneumothorax identified on the current study. Essentially stable chest, otherwise. Electronically signed by Aries Almaguer 05/14/2018 7:30 PM
[2018-05-14] MEDS: DUONEB (A & A) INH SCH ×2 (19:40→23:40)
[2018-05-14] MEDS ORDERED: MAXIPIME 1 GM in NS 50 ML IV SCH (20:00)
--- NOTE | 2018-05-14 20:37 | PULMONOLOGY CONSULTATION ---
DATE: 05/14/2018 REQUESTING PHYSICIAN: Dr. Collier. REASON FOR CONSULTATION: Respiratory failure. HISTORY OF PRESENT ILLNESS: Mr. Oshea is a 57-year-old, white male with morbid obesity, chronic kidney disease, COPD, sacral decubitus with prior diverting colostomy, who is on hospice according to the admission H and P. The patient was in respiratory distress when EMS arrived and appeared to be actively dying. The patient was given ketamine and intubated. His potassium was significantly elevated at 9.2. Arterial blood gas revealed elevated pCO2 and significant acidosis, even while on mechanical ventilation. An emergent Vas-Cath has been placed and he is being prepared for dialysis. He remains hypotensive and requires dopamine for hypotensive shock. PAST MEDICAL HISTORY/PROBLEM LIST: 1. Morbid obesity. 2. Stage 4, stage 5 end-stage renal disease. 3. Sacral decubitus. 4. Prior diverting colostomy. 5. Hypertension. 6. Dyslipidemia. 7. Coronary artery disease with prior coronary artery bypass grafting. 8. Status post cholecystectomy. 9. Status post knee surgery. 10. Status post hernia repair. 11. Peripheral vascular disease with chronic venous insufficiency in the lower extremities. SOCIAL HISTORY: Prior tobacco use, but no alcohol or drug use. REVIEW OF SYSTEMS: Cannot be obtained. FAMILY HISTORY: Noncontributory to current presentation. PHYSICAL EXAMINATION: General: Reveals a morbidly obese, white male who is arousable on mechanical ventilation. He is having some patient ventilator desynchrony. He currently is on dopamine. Vital Signs: Blood pressure 87/47, heart rate 53, respiratory rate 15. Increased to 22, oxygen saturation 89%. HEENT: Pupils are equal. Oropharynx evaluation is limited with endotracheal tube in place. Neck: Supple. Chest: Reveals coarse breath sounds bilaterally. Cardiac Exam: Decreased rate, regular rhythm. Abdomen: Obese and soft. Colostomy appears to be viable. Extremities: Reveal chronic vascular disease. The patient has decubitus ulcer and the photograph was reviewed. The patient was not rolled for evaluation. LABORATORIES: Sodium 132, potassium 9.2, chloride 103, bicarbonate 17, BUN 135, creatinine 4.2. White blood count 12.5, hemoglobin 7.5, platelet count 353,000. Arterial blood gas reveals pH 7.10, pCO2 of 55, pO2 of 71, with a normal lactate. White blood count 12.5, hemoglobin 7.5, platelet count 353,000. Chest x-ray reveals a Vas-Cath on the right. Endotracheal tube in good position. IMPRESSION: A 57-year-old with: 1. Morbid obesity. 2. End-stage renal disease. 3. Acute hypoxemic respiratory failure. 4. Acute hypercapnic respiratory failure. 5. Acute on chronic renal failure. 6. Severe hyperkalemia. 7. Decubitus ulcers. 8. Shock. 9. Bradycardia. PROGNOSIS: Poor. The patient appeared to be actively dying while on hospice when EMS was called. He has now been intubated and is undergoing resuscitation and dialysis. PLAN: 1. Initiate propofol for comfort and patient ventilator desynchrony. 2. Dialysis for severe hyperkalemia. 3. Dopamine for bradycardia and hypotension. 4. Continue full ventilatory support. 5. Agree with current broad-spectrum antibiotics. 6. Prognosis is poor TIME SPENT: In critical care, 1 hour. cc: Sarabjit Shah MD
[2018-05-14] MEDS ORDERED: HUMALOG SUBQ SCH (21:00)
[2018-05-14] MEDS: HEPARIN SUBQ SCH (21:10)
[2018-05-14] MEDS: DIPRIVAN 1% 1,000 MG/100 ML BOTTLE IV SCH ×2 (21:11→23:41)
[2018-05-14 21:28] LABS: URINE SOURCE CATH
[2018-05-14 21:43] LABS: BILIRUBIN URINE SMALL (NEGATIVE); BLOOD URINE TRACE (NEGATIVE); COLOR YELLOW; GLUCOSE URINE NEGATIVE (NEGATIVE); KETONE URINE NEGATIVE (NEGATIVE); LEUKOCYTES URINE SMALL (NEGATIVE); NITRITE URINE NEGATIVE (NEGATIVE); PH URINE 5.5; PROTEIN URINE 30 mg/dL (NEGATIVE); SP GRAVITY URINE 1.019; TURBIDITY URINE HAZY (CLEAR); UR EPITHELIAL CELLS <10 /HPF (<10); URINE BACTERIA NEGATIVE /HPF; UROBILINOGEN URINE NORMAL (NORMAL)
[2018-05-14 21:57] LABS: URINE CASTS NONE SEEN; URINE CRYSTALS NONE SEEN; URINE SMALL ROUND CELLS RENAL PRESENT; URINE YEAST NONE SEEN
--- NOTE | 2018-05-15 01:16 | OPERATIVE NOTE ---
PROCEDURE DATE: 05/14/2018 POSTOP DIAGNOSIS: Profound hyperkalemia with worsening renal dysfunction. POSTOP: Profound hyperkalemia with worsening renal dysfunction. PROCEDURE PERFORMED: Right subclavian Trialysis catheter placement. ANESTHESIA: ICU sedation protocol. INDICATIONS: 57-year-old gentleman with worsening renal dysfunction, hyperkalemia and need of emergent dialysis. OPERATIVE FINDINGS: Normal vascular anatomy. OPERATIVE NOTE: Risks, benefits, alternatives discussed with the patient's and she consented procedure. The patient was intubated. He was placed in Trendelenburg position. His right chest was prepped chlorhexidine solution draped usual fashion. After time-out the bony landmarks were palpated and local anesthetic was infiltrated. On 1st pass dark nonpulsatile venous blood was noted on return and the wire threaded with some manipulation of the wire easily without resistance. A skin chandrika was made. The tract was serially dilated and a pre-flushed triple-lumen catheter was advanced, we secured with a nylon suture. All ports withdrew blood and flushed without resistance. Sterile caps and sterile dressing were applied. He tolerated well. Stat chest x-ray was obtained that showed good position of the catheter with no evidence pneumothorax. cc: Kari Dent MD
[2018-05-15] MEDS: DIPRIVAN 1% 1,000 MG/100 ML BOTTLE IV SCH ×9 (02:49→23:36)
[2018-05-15 04:35] LABS: ALLEN TEST YES; BE -1.5 mmoll (-3.0-3.0); BLOOD TYPE ARTERIAL; HCO3-(ACT) 23.8 mmoll (20.0-26.0); METHB 1.3 % (0.0-1.5); MODALITY VENTILATOR; O2(CT) 10.1 mL/dL (15.0-23.0); O2HB 96.4 % (95.0-99.0); PCO2(98.6) 31 mmHg (35-45); PO2(98.6) 102 mmHg (60-100); SAMPLE BLOOD; SAO2 99.3 % (95.0-100.0); SRATE 22 BPM; THB 7.3 g/dL (11.5-17.4); TVOL 600 mL; pH(98.6) 7.46 (7.35-7.45)
[2018-05-15] MEDS: PROTONIX IV SCH (06:11)
[2018-05-15] MEDS: HUMULIN R SUBQ SCH ×4 (06:11→22:31)
[2018-05-15] MEDS ORDERED: ZOFRAN IV PRN (06:29)
[2018-05-15 06:33] LABS: BASO# 0.05 X1000 (0.0-0.2); BASO% 0.4 % (0.0-0.8); EOS# 0.22 X1000 (0.0-0.7); EOS% 1.5 % (0.0-10.0); HEMATOCRIT 26.5 % (42.0-52.0); HEMOGLOBIN 7.7 g/dL (14.0-18.0); IMM GRAN# 0.07 X1000 (0.0-0.04); IMM GRAN% 0.5 % (0.0-0.5); LYMPH# 1.64 X1000 (1.2-3.4); LYMPH% 11.5 % (20.5-51.1); MCH 24.1 PG (27-31); MCHC 29.1 g/dL (33-37); MCV 82.8 FL (81-99); MONO# 1.26 X1000 (0.11-0.59); MONO% 8.8 % (1.7-9.3); MPV 11.8 FL (7.4-10.4); NEUT# 11.03 X1000 (1.4-6.5); NEUT% 77.3 % (42.2-75.2); PLT 201 X1000 (130-400); RDW 17.6 % (11.5-14.5); WBC 14.27 X1000 (4.8-10.8)
[2018-05-15 06:55] LABS: LYMPHS 18 % (21-51); MONO 4 % (1-9); SEGS 78 % (42-75)
[2018-05-15 07:07] LABS: ALB/GLOB RATIO 1.2; ALBUMIN 3.1 g/dL (3.5-5.0); CALCIUM 7.9 mg/dL (8.8-10.2); CREATININE 3.1 mg/dL (0.7-1.2); DIRECT BILIRUBIN 0.1 mg/dL (0.00-0.20); PHOSPHORUS 5.2 mg/dL (2.7-4.5); TOTAL BILIRUBIN 0.27 mg/dL (0.20-1.00); TOTAL PROTEIN 5.7 g/dL (6.3-8.3)
--- NOTE | 2018-05-15 07:22 | EKG Report ---
Test Performed on : 05/15/2018 07:02:07 AM Test Reason : hyperkalemia Blood Pressure : / mmHG Vent. Rate : 070 BPM Atrial Rate : 060 BPM P-R Int : 000 ms QRS Dur : 112 ms QT Int : 384 ms P-R-T Axes : 000 080 212 degrees QTc Int : 414 ms Accelerated Junctional rhythm. Nonspecific ST and T wave abnormality Abnormal ECG When compared with ECG of 03-MAY-2018 07:40, Junctional rhythm. has replaced Sinus rhythm. Confirmed by Peg BEASLEY, Yoni Jones ([id number]) on 05/16/2018 7:00:45 AM
[2018-05-15 07:26] LABS: POTASSIUM 6.2 mmol/L (3.5-5.1)
[2018-05-15] MEDS ORDERED: NS 2,000 ML MISC PRN (07:45)
[2018-05-15] MEDS: DUONEB (A & A) INH SCH ×5 (07:50→23:03)
--- NOTE | 2018-05-15 08:02 | Diag Imaging Result Doc PS360 ---
CHEST-PORTABLE - 05/15/2018 INDICATION: pulmonary edema COMPARISON: 05/14/2018 FINDINGS: Support line and tube are stable. Stable significant cardiomegaly and pulmonary vascular congestion. Stable hazy interstitial pulmonary edema. Stable opacification of the right lung base probably involving pleural effusion. IMPRESSION: No change from prior. Electronically signed by Zi Schwartz 05/15/2018 8:00 AM
[2018-05-15] MEDS: HEPARIN SUBQ SCH ×2 (08:48→21:19)
[2018-05-15] MEDS: DAKIN'S 0.25% SOLN TOP SCH ×2 (09:54→21:14)
[2018-05-15] MEDS: DOPAMINE 800 MG/D5W 800 MG/500 ML IV.SOLN IV SCH ×2 (10:41→20:01)
[2018-05-15 13:32] LABS: HEPATITIS PROFILE ACUTE SEE COMMENTS
--- NOTE | 2018-05-15 13:40 | PROGRESS NOTE ---
DATE: 05/15/2018 SUBJECTIVE: The patient is currently intubated as well as sedated. OBJECTIVE: Vital signs: Temperature 97.8 degrees, pulse 73, respirations 20, blood pressure 92/50, O2 saturation is 98%. HEENT: Atraumatic, normocephalic. Has an ET tube in place. Cardiovascular: S1, S2. Respiratory: Evidence of good air entry bilaterally. Abdomen: Full, nontender. No masses felt. Extremities: Has 2+ edema in the lower extremities. Central nervous system: The patient is currently sedated. DIAGNOSTIC STUDIES: WBC is 14.27, hematocrit is 26.5, with a platelet count of 201,000. ABG 7.46/31/102/99.3%. Sodium is 138, potassium 6.2, chloride 104, bicarbonate 19, BUN is 88, creatinine 3.1. UA shows about 10-20 WBCs per high-power field. X-ray of the chest shows cardiomegaly with pulmonary vascular congestion. ASSESSMENT AND PLAN: 1. Acute respiratory failure secondary to volume overload. Continue hemodialysis to address the issue of volume overload. Also, the patient has been followed by the pulmonary team. 2. Acute kidney disease superimposed on chronic kidney failure. Continue hemodialysis. Nephrology following. 3. Hyperkalemia. Hopefully this will be corrected with hemodialysis. 4. Diabetes mellitus, type 2. Continue blood sugar monitoring as well as sliding scale insulin. 5. Stage 4 decubitus ulcer with diverting colostomy. Wound Care to address issue of the decubitus ulcer. 6. Chronic obstructive pulmonary disease (COPD). Continue nebulized bronchodilators as needed. ADVANCE DIRECTIVE: The patient was on hospice care, but has now rescinded that and is currently a full code. cc: Thomas Boyd MD
--- NOTE | 2018-05-15 15:00 | NEPHROLOGY CONSULTATION ---
DATE: 05/15/2018 REASON FOR ADMISSION: Shortness of breath, respiratory failure, life- threatening hyperkalemia. REASON FOR CONSULTATION: Above. CONSULTING PHYSICIAN: Thomas Boyd MD HISTORY OF PRESENT ILLNESS: This is a 57-year-old gentleman known to our service for chronic kidney disease stage 4 to 5. The patient recently had surgery at a different facility for diverting colostomy. He has been bedridden. He had been placed in care with [facility]. The patient was brought in to the emergency room with his hospice rescinded secondary to significantly increased weight gain over the weekend. He has shortness of breath, had to be intubated. Lab initially indicated a potassium of 9.2. The patient had emergent vascular access placed and was treated with dialysis overnight. His potassium today is 6.2. The patient remains sedated and mechanically ventilated today when I see him. PAST MEDICAL HISTORY: Lengthy, please see chart for complete details, but these do include chronic kidney disease stage 4 to 5, diabetes, hypertension, hyperlipidemia, coronary artery disease, obesity, sleep apnea, anemia, chronic edema, COPD, stage IV decubitus, diverting colostomy. PAST SURGICAL HISTORY: CABG, cholecystectomy, knee surgery, hernia repair, vascular surgery, diverting colostomy, sacral decubitus surgery. ALLERGIES: None. HOME MEDICATIONS: Please see chart for complete listing. FAMILY HISTORY: Noncontributory. SOCIAL HISTORY: He lives with his . He has been at home with [facility]. No ETOH, tobacco, or illicit drug use. REVIEW OF SYSTEMS: Unobtainable. PHYSICAL EXAMINATION: Vital Signs: Temperature 97.8, pulse 78, respiratory rate 22, blood pressure 96/53. This is with pressor support. Intake 2.3 L and output 4.4 L. General: This is an acutely ill-appearing elderly gentleman, currently sedated, mechanically ventilated. HEENT: Normocephalic, atraumatic. Orally intubated. Neck: Thick, unable to determine JVD. Cardiovascular: Regular rate and rhythm. Pulmonary: He is mechanically ventilated. Decreased breath sounds significantly secondary to body habitus. Genitourinary: Atkins catheter. Extremities: He has 2 to 4+ edema with dependent edema up to the thighs, and again, continued pitting edema up into the chest. Integumentary: Skin is warm and dry otherwise. He does have vascular changes noted to bilateral lower extremities. Neurological: He is currently sedated. LABORATORY DATA: WBC of 14.2, hemoglobin 7.7. Sodium 138, potassium 6.2, CO2 of 19, creatinine 3.1, BUN 81. ASSESSMENT AND PLAN: 1. Acute renal failure superimposed on chronic kidney disease with life- threatening hyperkalemia. The patient underwent emergent dialysis last night. We will run him on sustained low- efficiency dialysis (SLED) today with another goal of 4 to 5 L of fluid removal on a 3- potassium bath. 2. Fluid volume overload secondary to above. See number 1 for plan. 3. Electrolytes, acid-base balance. See number 1 for plan. 4. End-stage chronic obstructive pulmonary disease, followed by primary and pulmonology. Dictated by GIRMA Barton for Magnus Villaseñor MD Face to face encounter, data reviewed, discussed with Olga Garnica on 05/15/18. I agree with the above assessment and plan of care. cc: Magnus Villaseñor MD [facility]
[2018-05-15] MEDS ORDERED: VANCOMYCIN 1 GM/NS 1 GM/250 ML IVPB IV SCH (17:00)
--- NOTE | 2018-05-15 17:38 | Diag Imaging Result Doc PS360 ---
EXAM: US ABDOMEN-COMPLETE 05/15/2018 HISTORY: ascites TECHNIQUE: Abdominal ultrasound COMMENT: There is ascites. The visualized portions of the aorta and inferior vena cava are within normal limits. There is antegrade flow in the portal vein. There is no evidence of biliary dilatation the common bile duct measuring 4 mm. There is no evidence of hydronephrosis or mass in the kidneys. The spleen is enlarged measuring over 15 cm. The pancreas is obscured. The gallbladder is surgically absent. The liver is grossly normal in appearance. Compared to the previous renal ultrasound of 05/03/2018 the ascites seen on today's study was not visible at that time. IMPRESSION: Ascites and splenomegaly. Electronically signed by Robin Barrientos 05/15/2018 5:36 PM
[2018-05-15] MEDS ORDERED: MAXIPIME 1 GM in NS 50 ML IV ONE (18:00)
[2018-05-15] MEDS ORDERED: VANCOMYCIN 1 GM/NS 1 GM/250 ML IVPB IV ONE (20:00)
--- NOTE | 2018-05-15 20:54 | PULMONOLOGY PROGRESS NOTE ---
DATE: 05/15/2018 SUBJECTIVE: The patient is sedated, but does respond to his voice. He remains on Diprivan and dopamine. OBJECTIVE: Vital Signs: Blood pressure 96/54, heart rate 82, respiratory rate 22, oxygen saturation 93% on 70% FiO2. HEENT: Pupils are equal. Oropharynx appears clear. Neck: Supple. Chest: Reveals coarse rhonchi bilaterally. Cardiac: S1, S2. Abdomen: Obese and soft. Extremities: Cool to the touch. LABORATORIES: Chest x-ray reveals cardiomegaly and pulmonary vascular congestion. White blood count 14.27, hemoglobin 7.7, platelet count 201,000. Sodium 138, potassium 6.2, chloride 104, bicarbonate 19, BUN 88, creatinine 3.1. White blood count 14.27, hemoglobin 7.7, platelet count 201,000. Arterial blood gas reveals a pH of 7.46, pCO2 of 31, PO2 of 102, with a lactate of 1.2. Microbiology reveals gram-negative cristiana in his urine and a gram- negative cristiana in his sputum. IMPRESSION: A 57-year-old with: 1. Acute hypoxemic respiratory failure. 2. Acute hypercapnic respiratory failure. 3. Gram-negative pneumonia. 4. Gram-negative urinary tract infection. 5. Septic shock. 6. Decubitus ulcers. 7. End-stage renal disease, on hemodialysis. 8. Hyperkalemia. 9. Morbid obesity. DISCUSSION: A 57-year-old with multiple comorbidities as outlined above. The patient was previously on hospice and was actively dying when EMS was called and he was intubated. The patient now is on mechanical ventilation. He is requiring dialysis for severe hyperkalemia. He is on vasopressors for septic shock. RECOMMENDATIONS: 1. Continue comfort measures with propofol. 2. Dialysis plan today for ongoing hyperkalemia. 3. Continue dopamine for bradycardia and hypotension. 4. Continue full ventilatory support. 5. Continue broad-spectrum antibiotics. 6. Overall prognosis is poor. Time spent in critical care management: 30+ minutes cc: Sarabjit Shah MD [facility]
[2018-05-16] MEDS: DOPAMINE 800 MG/D5W 800 MG/500 ML IV.SOLN IV SCH ×4 (01:53→22:23)
[2018-05-16] MEDS: DIPRIVAN 1% 1,000 MG/100 ML BOTTLE IV SCH ×8 (03:42→22:37)
[2018-05-16 05:25] LABS: ALLEN TEST YES; BE -3.2 mmoll (-3.0-3.0); BLOOD TYPE ARTERIAL; HCO3-(ACT) 22.4 mmoll (20.0-26.0); MODALITY VENTILATOR; PCO2(98.6) 29 mmHg (35-45); PO2(98.6) 90 mmHg (60-100); SAMPLE BLOOD; SRATE 22 BPM; TVOL 600 mL; pH(98.6) 7.44 (7.35-7.45)
[2018-05-16] MEDS: PROTONIX IV SCH (06:11)
[2018-05-16] MEDS: SODIUM CHLORIDE 0.9% INJ SCH (06:11)
[2018-05-16] MEDS: HUMULIN R SUBQ SCH ×4 (06:23→22:05)
[2018-05-16 06:34] LABS: BASO# 0.03 X1000 (0.0-0.2); BASO% 0.2 % (0.0-0.8); EOS# 0.26 X1000 (0.0-0.7); EOS% 2.1 % (0.0-10.0); HEMATOCRIT 26.8 % (42.0-52.0); HEMOGLOBIN 7.7 g/dL (14.0-18.0); IMM GRAN# 0.03 X1000 (0.0-0.04); IMM GRAN% 0.2 % (0.0-0.5); LYMPH# 1.41 X1000 (1.2-3.4); LYMPH% 11.3 % (20.5-51.1); MCH 23.8 PG (27-31); MCHC 28.7 g/dL (33-37); MONO# 0.81 X1000 (0.11-0.59); MONO% 6.5 % (1.7-9.3); MPV 11.4 FL (7.4-10.4); NEUT# 9.94 X1000 (1.4-6.5); NEUT% 79.7 % (42.2-75.2); PLT 304 X1000 (130-400); RBC 3.23 XMIL (4.7-6.1); RDW 17.9 % (11.5-14.5); WBC 12.48 X1000 (4.8-10.8)
[2018-05-16] MEDS ORDERED: NS 2,000 ML MISC PRN (06:43)
[2018-05-16 07:04] LABS: ALBUMIN 2.9 g/dL (3.5-5.0); CALCIUM 8.3 mg/dL (8.8-10.2); PHOSPHORUS 3.8 mg/dL (2.7-4.5); POTASSIUM 4.7 mmol/L (3.5-5.1)
--- NOTE | 2018-05-16 07:13 | Diag Imaging Result Doc PS360 ---
EXAM: CHEST-PORTABLE 05/16/2018 HISTORY: pulmonary edema TECHNIQUE: AP portable at 0541 COMMENT: There is an endotracheal tube with its tip at the thoracic inlet. There is a double-lumen right internal jugular catheter with its tip in the superior vena cava. The base on the right costophrenic angle on the left are not included on the image. The patient is rotated slightly to the right. There is an apparent right pleural effusion. There is cardiomegaly and increased pulmonary vascularity as well as interstitial and alveolar pulmonary edema. The latter appears slightly worse than on 05/15/2018. IMPRESSION: Pulmonary edema and cardiomegaly with right pleural effusion. Electronically signed by Robin Barrientos 05/16/2018 7:11 AM
[2018-05-16] MEDS: DUONEB (A & A) INH SCH ×5 (07:55→23:08)
[2018-05-16] MEDS: HEPARIN SUBQ SCH ×2 (08:31→22:09)
[2018-05-16] MEDS: DAKIN'S 0.25% SOLN TOP SCH ×2 (08:32→22:10)
--- NOTE | 2018-05-16 11:00 | PULMONOLOGY PROGRESS NOTE ---
DATE: 05/16/2018 SUBJECTIVE: The patient is sedated. He is on mechanical ventilation. He remains on dopamine for hypotension. OBJECTIVE: BP 102/53, heart rate 87, respiratory rate 21, oxygen saturation 95% . HEENT: Pupils appear equal. Oropharynx is clear. Neck is supple. Chest reveals coarse rhonchi bilaterally with decreased breath sounds in the lung bases. Cardiac Exam: S1, S2. Abdomen is obese and soft. Extremities reveal generalized edema. IMAGING AND LABORATORY DATA: Chest x-ray reveals increase in pulmonary edema, cardiomegaly, and right greater than left pleural effusion. Arterial blood gas reveals a pH of 7.44, pCO2 of 29, PO2 of 90 on assist control , rate of 22, FiO2 of 80%, tidal volume 600. White blood count 12.48, hemoglobin 7.7, platelet count 304,000. Sodium 133, potassium 4.7, chloride 103 bicarbonate 18. BUN 40, creatinine 2.0. IMPRESSION: A 57-year-old with 1. Acute hypoxemic respiratory failure. 2. Acute hypercapnic respiratory failure. 3. Gram-negative pneumonia (organism still pending). 4. Gram-negative urinary tract infection. 5. Ongoing septic shock. 6. Decubitus ulcers. 7. End-stage renal disease with hyperkalemia, currently on hemodialysis. 8. Morbid obesity. DISCUSSION: A 57-year-old with multiple cor morbidities as outlined above. He has had improvement in hyperkalemia. His oxygen requirements may have marginally improved. His is at the bedside. Per discussion with Palliative Care, she has elected to make him a DO NOT RESUSCITATE. She is considering withdrawal of support. RECOMMENDATION: 1. Continue ventilatory support. 2. Continue vasopressor support. 3. Continue sedation for comfort with propofol. 4. Continue broad-spectrum antibiotics. Overall prognosis is poor. End of life discussions are in progress. Time spent in critical care management and discussion with family: 30+ minutes cc: Sarabjit Shah MD [facility]
[2018-05-16] MEDS: MERREM 500 MG in NS 50 ML IV SCH (12:06)
--- NOTE | 2018-05-16 12:37 | PROGRESS NOTE ---
DATE: 05/16/2018 SUBJECTIVE: The patient is currently intubated, as well as sedated. His is also requiring pressors for hypotension. OBJECTIVE: Vital signs: Temperature 97.6 degrees, pulse is 86, respirations 34, and blood pressure is 119/63, oxygen saturation is 100%. HEENT: He is currently atraumatic, normocephalic. He has an ET tube in place. Cardiovascular system: S1, S2. Respiratory system: Has evidence of good air entry bilaterally. Abdomen: Distended. Has ostomy on the left side. Extremities: Has 2+ to 3+ edema in both lower extremities. Central nervous system: The patient is currently sedated. LABORATORY DATA: WBC is 12.48, hematocrit is 26.8 with a platelet count of 304. ABG 7.44/29/90. Chemistry: Sodium is 138, potassium 4.7, chloride is 103, bicarbonate is 18. BUN is 40, creatinine is 2.0. IMAGING STUDIES: X-ray of his chest shows pulmonary edema, as well as cardiomegaly with right pleural effusion. ASSESSMENT AND PLAN: 1. Acute respiratory failure with volume overload. Continue hemodialysis to address the issue of volume overload. Continue ventilator support. Pulmonary team is following. 2. Acute kidney injury superimposed on chronic kidney disease. Continue hemodialysis as recommended by Nephrology. 3. Hyperkalemia. This has been corrected. 4. Septic shock. Source of sepsis is urinary tract infection secondary to Klebsiella oxytoca, as well as Escherichia coli bronchitis. The patient is currently on Merrem. We will consult with Infectious Disease for antibiotic management. Also, the patient will be maintained on pressors to keep systolic blood pressure above 90. 5. Diabetes mellitus. Continue blood sugar monitor, as well as sliding scale insulin. 6. Stage IV decubitus ulcer with diverting colostomy. Consulted Wound Care regarding the decubitus ulcer. 7. Chronic obstructive pulmonary disease. Continue nebulized bronchodilators. 8. Advanced directive. The patient is now [id number]. cc: Thomas Boyd MD
[2018-05-16] MEDS ORDERED: VANCOMYCIN 1 GM/NS 1 GM/250 ML IVPB IV ONE (18:00)
--- NOTE | 2018-05-16 21:37 | NEPHROLOGY PROGRESS NOTE ---
DATE: 05/16/2018 SUBJECTIVE: Unresponsive, sedated on the ventilator. OBJECTIVE: Exam performed at approximately 0700.Vital signs: Blood pressure 115/62, heart rate 88, respirations 22. Intake and output: Intake 2.8 L. Output 5.7 L. General: Again sedated, unresponsive. Skin: Warm and dry. Neck: Neck veins are not visible. Heart: Regular. Lungs: Equal with no crackles. Abdomen: Soft, obese, nontender. Abdominal wall erythema and edema, especially on the right. Extremities: Have 2+ edema. No clubbing or cyanosis. IMPRESSION: Acute kidney injury with oliguria. SLED again today with a goal of 6-8 L of ultrafiltration as his blood pressure allows. Electrolytes are in target. He does have a moderate metabolic acidosis that will be addressed with a 27 bicarbonate bath on dialysis. cc: Magnus Villaseñor MD
[2018-05-17] MEDS: DIPRIVAN 1% 1,000 MG/100 ML BOTTLE IV SCH ×3 (00:15→07:29)
[2018-05-17 04:37] LABS: ALLEN TEST YES; BLOOD TYPE ARTERIAL; HCO3-(ACT) 21.8 mmoll (20.0-26.0); O2(CT) 9.2 mL/dL (15.0-23.0); O2HB 95.4 % (95.0-99.0); PCO2(98.6) 35 mmHg (35-45); PO2(98.6) 67 mmHg (60-100); SAMPLE BLOOD; SAO2 100.7 % (95.0-100.0); SRATE 16 BPM; THB 6.8 g/dL (11.5-17.4); TVOL 600 mL; pH(98.6) 7.38 (7.35-7.45)
[2018-05-17 04:38] LABS: MODALITY VENTILATOR
[2018-05-17 05:44] LABS: BASO# 0.02 X1000 (0.0-0.2); BASO% 0.1 % (0.0-0.8); EOS# 0.24 X1000 (0.0-0.7); EOS% 1.7 % (0.0-10.0); HEMATOCRIT 26.7 % (42.0-52.0); HEMOGLOBIN 7.6 g/dL (14.0-18.0); IMM GRAN# 0.03 X1000 (0.0-0.04); IMM GRAN% 0.2 % (0.0-0.5); LYMPH# 1.19 X1000 (1.2-3.4); LYMPH% 8.4 % (20.5-51.1); MCH 23.8 PG (27-31); MCHC 28.5 g/dL (33-37); MCV 83.4 FL (81-99); MPV 10.7 FL (7.4-10.4); NEUT# 11.74 X1000 (1.4-6.5); NEUT% 82.6 % (42.2-75.2); PLT 233 X1000 (130-400); RDW 17.8 % (11.5-14.5); WBC 14.22 X1000 (4.8-10.8)
[2018-05-17] MEDS ORDERED: NS 2,000 ML MISC PRN (06:06)
[2018-05-17 06:11] LABS: ALBUMIN 2.9 g/dL (3.5-5.0); CALCIUM 8.3 mg/dL (8.8-10.2); CREATININE 1.3 mg/dL (0.7-1.2); PHOSPHORUS 3.6 mg/dL (2.7-4.5); POTASSIUM 4.6 mmol/L (3.5-5.1)
[2018-05-17] MEDS: HUMULIN R SUBQ SCH ×4 (06:36→21:18)
[2018-05-17] MEDS: SODIUM CHLORIDE 0.9% INJ SCH (06:36)
[2018-05-17] MEDS: PROTONIX IV SCH (06:36)
[2018-05-17] MEDS: DUONEB (A & A) INH SCH ×5 (08:08→23:00)
[2018-05-17] MEDS: MERREM 500 MG in NS 50 ML IV SCH (08:44)
[2018-05-17] MEDS: HEPARIN SUBQ SCH (08:44)
[2018-05-17] MEDS: DAKIN'S 0.25% SOLN TOP SCH (08:45)
[2018-05-17] MEDS: DOPAMINE 800 MG/D5W 800 MG/500 ML IV.SOLN IV SCH (09:31)
--- NOTE | 2018-05-17 10:29 | Diag Imaging Result Doc PS360 ---
EXAM: CHEST-PORTABLE 05/17/2018 HISTORY: abnormal exam TECHNIQUE: AP portable upright at 0957 COMMENT: There is an endotracheal tube with its tip at thoracic inlet. There is cardiomegaly. There is increased pulmonary vascularity. There is a right subclavian double lumen catheter with its tip in the superior vena cava. Compared to the previous study of 05/16/2018 considering differences in positioning there has been no significant change. IMPRESSION: Pulmonary edema and cardiomegaly. Electronically signed by Robin Barrientos 05/17/2018 10:27 AM
--- NOTE | 2018-05-17 11:26 | PULMONOLOGY PROGRESS NOTE ---
DATE: 05/17/2018 SUBJECTIVE: Patient is sedated. He remains on mechanical ventilation. He remains on dopamine. His is at the bedside. OBJECTIVE: Vital signs: Blood pressure 117/65, heart rate 93, respiratory rate 19, oxygen saturation 93% HEENT: Pupils are equal. Oropharynx appears clear. Neck: Supple. Chest: Coarse rhonchi bilaterally. Cardiac: S1, S2. Abdomen: Obese and soft. Extremities: Cool to the touch. LABORATORIES: Arterial blood gas reveals pH 7.38, pCO2 of 35, PO2 of 67. Sodium 137, potassium 4.6, chloride 100, bicarbonate 19, BUN 22, creatinine 1.3. White blood count 14.2, hemoglobin 7.6, platelet count 233,000. IMPRESSION: A 57-year-old patient who was on hospice, who was brought to the emergency room and resuscitated while actively dying. The patient has: 1. Acute hypoxemic respiratory failure. 2. Acute hypercapnic respiratory failure. 3. Gram-negative pneumonia with sputum revealing Escherichia coli. 4. Gram-negative urinary tract infection. 5. Ongoing septic shock. 6. Decubitus ulcer. 7. End-stage renal disease. 8. Morbid obesity. DISCUSSION: A 57-year-old with multiple comorbidities with respiratory failure and septic shock with end-stage renal disease. The patient's is at the bedside. She reports he would not want to continue. He was made a Do Not Resuscitate yesterday. The patient's has indicated that she does not want any additional dialysis. She would like him extubated this morning for comfort measures and asked how long would be before he perished. RECOMMENDATIONS: 1. Notify [facility] as per requirements. 2. Anticipate compassionate extubation this morning. Comfort medicines have been adjusted. TIME SPENT IN CRITICAL CARE: 30 minutes. cc: Sarabjit Shah MD
--- NOTE | 2018-05-17 12:55 | NEPHROLOGY PROGRESS NOTE ---
DATE: 05/17/2018 TIME SEEN: 0630 SUBJECTIVE: Mr. Oshea is resting quietly in bed. He remains on isolation for ESBL to his sputum. He is ventilator-dependent with pressor support, sedated on the ventilator. VITAL SIGNS: His most recent vital signs show his last temperature 98.9, highest temperature of 99.4 degrees during the night, blood pressure 123/71, heart rate 93, respirations 34 with vent support. The patient is currently on 50% FiO2. Last recorded saturation is 96% . He has had 2806 in. He has had 9108 out with 7.7 L on dialysis. LABORATORY DATA: Sodium 137, potassium 4.6, chloride 107, CO2 19, BUN 22, creatinine 1.3, glucose 147. The patient has an anion gap of 11. Calcium is 8.3, phosphorus 3.6, albumin 2.9. White count 14.22, hemoglobin 7.6, hematocrit 26.7, platelet count 233,000. Arterial blood gases: pH 7.38, CO2 35, PO2 67, bicarb 21.8 on 60% FiO2. PHYSICAL EXAMINATION: General: This is a 57-year-old male resting quietly with ventilatory support. He is sedated. No acute distress, appears chronically ill. HEENT: Normocephalic, atraumatic. Conjunctivae pale. [place]. Slightly dysconjugate. Unable to determine JVD, appears positive around ET tubing. Cardiovascular: Regular rate and rhythm. S4 is present. Lungs: Coarse breath sounds bilaterally. Equal excursion. Abdomen: Hypo bowel sounds. The patient has pitting edema from his lower extremities up into his abdomen. Redness has slightly improved on the abdominal area. Genitourinary: Not inspected. Adequate urine out with Atkins catheter with dialysis assist. Extremities: Continues with 2 to 4+ tight dependent edema, again up into the abdominal area. Neurological: As mentioned above. ASSESSMENT AND PLAN: 1. Acute kidney injury on chronic kidney disease stage 4. The patient has responded nicely to dialysis support. Creatinine and BUN have improved. He continues in fluid volume overload, requiring sustained low efficiency dialysis on a daily basis. The patient had 7.7 L removed yesterday. We had planned for SLED today. The nursing service has called stating that the would like to withdraw dialysis this morning. Dr. Villaseñor has been notified. 2. Fluid volume overload. Again, we had planned for sustained low efficiency dialysis for dialysis assistance. This has been withdrawn this a.m. per . 3. Electrolytes and acid-base balance. This is fairly stable. 4. Anemia. This remains low. Defer to the primary care team for any intervention. 5. End-stage chronic obstructive pulmonary disease. The patient is currently ventilator- dependent. Again, we will defer to the primary care team and Pulmonology. I would to thank you for allowing us to follow with this patient. Dictated by GIRMA Prasad for Magnus Villaseñor MD Face to face encounter, data reviewed, discussed with Zoran Rodriguez on 05/17/18. I agree with the above assessment and plan of care. cc: GIRMA Prasad MD [facility]
--- NOTE | 2018-05-17 13:20 | PROGRESS NOTE ---
DATE: 05/17/2018 SUBJECTIVE: The patient has been extubated. Resting in bed. Has by the bedside. They have opted for comfort care measures only. OBJECTIVE: Vital signs: Temperature degrees 97 degrees, pulse 91, respirations 16, blood pressure 78/35, oxygen saturation is 91%. HEENT: Atraumatic, normocephalic. Cardiovascular: S1, S2. Respiratory: Good air entry bilaterally. No rales or rhonchi noted. Abdomen: Obese, nontender. Extremities: Significantly decreased edema in both lower extremities. Central nervous system: No obvious focal deficit noted. LABORATORY DATA: WBC is 14.22, hematocrit is 26.7 with a platelet count of 233,000. ABG pH 7.23,/35/67/100.7%. Sodium is 137, potassium 4.6, chloride is 107, bicarb 19, BUN is 22, creatinine 1.3. ASSESSMENT: 1. Acute respiratory failure. 2. Acute kidney injury. 3. Septic shock. 4. Urinary tract infection. 5. Escherichia coli bronchitis. 6. Diabetes mellitus. 7. Decubitus ulcer with diverting colostomy. 8. Chronic obstructive pulmonary disease. PLAN: Patient to receive comfort care measures only. The patient can now be transferred to the floor. cc: Thomas Boyd MD
[2018-05-17] MEDS: MORPHINE IV PRN ×2 (14:31→21:28)
[2018-05-18] MEDS: MORPHINE IV PRN ×3 (04:36→20:04)
[2018-05-18] MEDS: DAKIN'S 0.25% SOLN TOP SCH ×3 (04:56→20:25)
[2018-05-18] MEDS: HUMULIN R SUBQ SCH ×4 (06:17→20:24)
[2018-05-18] MEDS: DUONEB (A & A) INH SCH ×5 (08:02→23:10)
[2018-05-18 08:13] LABS: BASO# 0.02 X1000 (0.0-0.2); BASO% 0.2 % (0.0-0.8); EOS# 0.24 X1000 (0.0-0.7); HEMATOCRIT 23.1 % (42.0-52.0); HEMOGLOBIN 6.2 g/dL (14.0-18.0); IMM GRAN# 0.02 X1000 (0.0-0.04); IMM GRAN% 0.2 % (0.0-0.5); LYMPH# 1.05 X1000 (1.2-3.4); LYMPH% 12.9 % (20.5-51.1); MCHC 26.8 g/dL (33-37); MCV 85.6 FL (81-99); MONO# 0.62 X1000 (0.11-0.59); MONO% 7.6 % (1.7-9.3); MPV 10.3 FL (7.4-10.4); NEUT# 6.16 X1000 (1.4-6.5); NEUT% 76.1 % (42.2-75.2); PLT 192 X1000 (130-400); RDW 17.6 % (11.5-14.5); WBC 8.11 X1000 (4.8-10.8)
[2018-05-18 08:41] LABS: ALBUMIN 2.8 g/dL (3.5-5.0); CALCIUM 8.1 mg/dL (8.8-10.2); CREATININE 1.6 mg/dL (0.7-1.2); PHOSPHORUS 4.8 mg/dL (2.7-4.5); POTASSIUM 4.7 mmol/L (3.5-5.1)
[2018-05-18 08:48] LABS: BASO 2 % (0-1); LYMPHS 14 % (21-51); MONO 4 % (1-9); SEGS 80 % (42-75)
--- NOTE | 2018-05-18 16:16 | PROGRESS NOTE ---
DATE: 05/18/2018 SUBJECTIVE: Patient resting in bed. Not in any obvious distress. OBJECTIVE: Vital signs: Temperature 98.3 degrees, pulse 99, respiratory 17, blood pressure is 110/48, oxygen saturation 96%. HEENT: Atraumatic normocephalic. Cardiovascular: S1, S2. Respiratory: Has evidence of good entry bilaterally. Abdomen: Obese, nontender, no masses felt. Central nervous system: No obvious focal deficit noted. LABS: WBC is 8.11, hematocrit 23.1 with a platelet count 192,000, sodium 144, potassium 1.7, chloride is 112, bicarb is 21, BUN is 29, creatinine is 1.6. ASSESSMENT AND PLAN: 1. Acute respiratory failure. 2. Acute kidney injury. 3. Septic shock. 4. Urinary tract infection. 5. Escherichia coli bronchitis. 6. Diabetes mellitus. 7. Decubitus ulcer with diverting colostomy. 8. Chronic obstructive pulmonary disease. PLAN: The patient receiving comfort care measures only at this time. cc: Thomas Boyd MD
[2018-05-19] MEDS: MORPHINE IV PRN ×4 (05:44→18:09)
[2018-05-19] MEDS: HUMULIN R SUBQ SCH ×4 (06:07→21:40)
[2018-05-19 07:38] LABS: BASO# 0.03 X1000 (0.0-0.2); BASO% 0.4 % (0.0-0.8); EOS# 0.34 X1000 (0.0-0.7); HEMATOCRIT 24.3 % (42.0-52.0); HEMOGLOBIN 6.5 g/dL (14.0-18.0); IMM GRAN# 0.03 X1000 (0.0-0.04); IMM GRAN% 0.4 % (0.0-0.5); LYMPH% 11.8 % (20.5-51.1); MCH 22.9 PG (27-31); MCHC 26.7 g/dL (33-37); MCV 85.6 FL (81-99); MONO# 0.74 X1000 (0.11-0.59); MONO% 8.7 % (1.7-9.3); MPV 9.8 FL (7.4-10.4); NEUT# 6.36 X1000 (1.4-6.5); NEUT% 74.7 % (42.2-75.2); PLT 196 X1000 (130-400); RBC 2.84 XMIL (4.7-6.1); RDW 17.6 % (11.5-14.5)
[2018-05-19] MEDS: DUONEB (A & A) INH SCH ×5 (08:11→23:30)
[2018-05-19] MEDS: DAKIN'S 0.25% SOLN TOP SCH ×2 (11:03→21:40)
[2018-05-19] MEDS: ATIVAN IV PRN ×3 (13:20→22:10)
--- NOTE | 2018-05-19 15:49 | PROGRESS NOTE ---
DATE: 05/19/2018 Today Mr. Oshea refers to be feeling fairly okay. He is still on a face mask. There were about 4 family members at his bedside. had gone home. OBJECTIVE: Vital signs: Blood pressure is 111/58, pulse is 112, respirations 24, temperature is 98.1 degrees. General: Mr. Oshea is a 57-year-old morbidly obese male. He is in bed. He is in mild respiratory distress. Mucosa is pink and moist. Anicteric. Acyanotic. Neck: Supple. Chest: Air entry is bilaterally reduced. There is a distant end expiratory wheezing. Cardiovascular: Regular rate and rhythm. No murmurs, no rubs, no gallops. Abdomen: Soft, nontender. Bowel sounds present. Extremities: No pedal edema. CORPORATE DEVELOPMENT OFFICER: Patient is awake, alert, and oriented. LABORATORY DATA: Has been reviewed. Patient's hemoglobin is 6.5, it was 6.2 yesterday. No chemistry. Glucose is 106. ASSESSMENT: 1. Septic shock on presentation. 2. E. coli pneumonia. 3. Acute hypoxemic respiratory failure. 4. Acute kidney injury. Creatinine seems to be on downward trend. 5. Klebsiella oxytoca UTI. 6. Diabetes mellitus. 7. Decubitus ulcers. Wound care is on board. 8. History of chronic obstructive pulmonary disease. Mr. Oshea is currently under [employer]CH[employer]. We will continue with the current care plan. The patient will be seen by Dr. Boyd tomorrow. cc: Elvin Wood MD
[2018-05-20] MEDS: ATIVAN IV PRN ×4 (01:36→11:12)
[2018-05-20] MEDS: MORPHINE IV PRN ×3 (04:47→11:11)
[2018-05-20] MEDS: HUMULIN R SUBQ SCH ×2 (06:08→11:12)
[2018-05-20] MEDS: DUONEB (A & A) INH SCH ×3 (07:29→15:40)
[2018-05-20 08:21] LABS: BASO# 0.06 X1000 (0.0-0.2); BASO% 0.5 % (0.0-0.8); EOS# 0.47 X1000 (0.0-0.7); EOS% 4.3 % (0.0-10.0); HEMOGLOBIN 7.1 g/dL (14.0-18.0); IMM GRAN# 0.05 X1000 (0.0-0.04); IMM GRAN% 0.5 % (0.0-0.5); LYMPH# 1.22 X1000 (1.2-3.4); LYMPH% 11.2 % (20.5-51.1); MCH 22.4 PG (27-31); MCHC 25.4 g/dL (33-37); MCV 88.3 FL (81-99); MONO# 1.13 X1000 (0.11-0.59); MONO% 10.4 % (1.7-9.3); MPV 10.7 FL (7.4-10.4); NEUT# 7.98 X1000 (1.4-6.5); NEUT% 73.1 % (42.2-75.2); PLT 274 X1000 (130-400); RBC 3.17 XMIL (4.7-6.1); RDW 18.1 % (11.5-14.5); WBC 10.91 X1000 (4.8-10.8)
[2018-05-20 08:35] LABS: CALCIUM 8.7 mg/dL (8.8-10.2); CREATININE 1.9 mg/dL (0.7-1.2); POTASSIUM 5.9 mmol/L (3.5-5.1)
[2018-05-20 08:42] LABS: ANISOCYTOSIS 1+; BASO 2 % (0-1); HYPOCHROM 1+; LYMPHS 12 % (21-51); MONO 8 % (1-9); POIKILOCYTOSIS 1+; SEGS 76 % (42-75)
[2018-05-20 08:51] VITALS: BP 118/42
[2018-05-20] MEDS: DAKIN'S 0.25% SOLN TOP SCH (11:11)
--- NOTE | 2018-05-21 15:02 | DISCHARGE SUMMARY ---
ADMISSION DATE: 05/14/2018 DISCHARGE DATE: 05/20/2018 SUMMARY: PRINCIPAL DIAGNOSIS: Acute respiratory failure. SECONDARY DIAGNOSES: 1. Acute kidney injury. 2. Chronic kidney disease. 3. Hyperkalemia. 4. Bradycardia. 5. Septic shock. 6. Metabolic acidosis. 7. Anemia. 8. Type 2 diabetes mellitus. 9. Stage 4 decubitus ulcer with diverting colostomy. 10. Chronic obstructive pulmonary disease (COPD). 11. Morbid obesity. 12. urinary tract infection. 13. Obstructive sleep apnea HOSPITAL COURSE: Ms. Beto Oshea is a 57-year-old male with a history of multiple medical conditions, including stage 4 chronic kidney disease, type 2 diabetes mellitus, hypertension, hyperlipidemia, coronary artery disease, morbid obesity, anemia of chronic disease, sleep apnea, and was admitted to the hospital with acute kidney injury superimposed on chronic kidney disease as well as hyperkalemia. The patient was subsequently intubated because of respiratory failure as a result of volume overload. During the course of the hospital stay, he had a right subclavian Trialysis catheter placed by Dr. Dent. He was seen by the Nephrology team. The plan was to run him on sustained low-efficiency dialysis. While receiving care, a decision was made for patient to terminate treatment. He was subsequently extubated, dialysis was stopped, and the patient was placed only on comfort measures. He was subsequently transferred to the floor. The patient did on 05/20/2018. cc: Thomas Boyd MD [facility]TD[facility]
== END 2018-05-20 12:28 | disposition expired | DRG 871 ==
LOC: SUPCPDRO → ED 12:48 → SUATTDRO 15:36 → ICU 15:36 → 3N 05-17 19:22
PROVIDERS: ATTEND Internal Medicine
CPT/HCPCS: 71010; 71045; 76700; 80048; 80053; 80069; 80074; 80076; 81001; 82009; 82550; 82805; 82948; 84145; 84484; 85025; 85610; 85730; 87040; 87070; 87077; 87088; 87186; 87205; 87275; 87276; 87804; 93005; 93010; 94003; 94640; 94761; 96365; 96366; 96368; 96375; 99285; 99291; A9270; C1725; C9113; J0461; J0692; J1265; J1644; J2060; J2185; J2270; J2405; J3010; J3370; J7030; S0164; XXXXX